=== PATIENT | female | born 1950 | race Caucasian/White ===

== ENCOUNTER → 2016-10-31 | Outpatient (CLI) | payer BC ==
[~2016-10-31] MED LIST: BUPR300T34 PO; CELE-19 PO; FAMO20TA PO; HYDR12.55 PO; LOSA50TA20 PO; OMEP40CA2 PO; VITA100037 PO; ZOSTINJ SC
--- NOTE | 2016-10-31 17:21 | REPMRS ---
Patient History The patient states she had a clinical breast exam in 10/2016. Family history of ovarian cancer in mother under age 50, breast cancer in maternal aunt under age 50, and breast cancer in maternal cousin at age 50 or over. Took estrogen for 20 years. Digital Woman Screen Mammo: October 31, 2016 - Exam #: [id number] Bilateral CC and MLO view(s) were taken. Technologist: Lizzeth Bailey, Technologist Prior study comparison: October 31, 2015, digital woman screen mammo performed at [facility]. October 25, 2014, digital woman screen mammo performed at [facility]. October 21, 2012, digital woman screen mammo performed at [facility]. FINDINGS: There are scattered fibroglandular densities. There is a moderate amount of residual fibroglandular tissue which is fairly symmetric. There is no interval development of dominant mass, architectural distortion, or clustered microcalcification typical of malignancy. There has been no change in the appearance of the mammogram from the prior studies. ASSESSMENT: BI-RADS/ACR category 1 mammogram. Negative. Recommendation Routine screening mammogram of both breasts in 1 year (for women over age 40). This mammogram was interpreted with the aid of an FDA-approved computer-aided dectection system. Electronically Signed By: Ventura Marcos MD 10/31/16 [id number]
== END ==
LOC: M WHC 10:26
PROVIDERS: ATTEND Nurse Practitioner Women's Health
DX: Z12.31 Encounter for screening mammogram for malignant neoplasm of breast (principal)

== ENCOUNTER → 2016-12-08 | Outpatient (CLI) | payer BC, OTHER ==
[~2016-12-08] MED LIST changes: +GASTROGRAFIN SOLUTION 30ML (Q9963) As Ordered ONE; +ISOVUE-370 76% 100ML VIAL (Q9967) As Ordered ONE
--- NOTE | 2016-12-08 16:35 | REP ---
Clinical: Groin pain. Technique: Axial contrast enhanced images from the lung bases to the pubic symphysis using oral and 100 ml Isovue 370 intravenous contrast material with precontrast and delayed images of the abdomen as well as coronal and sagittal re-formations. Findings: Lung bases demonstrate bullae in the right lower lobe along with scarring and suggestions for prior pulmonary surgery in the periphery of the right base. No prior examinations available for comparison. A large hiatal hernia is identified. Liver demonstrates three hypodense lesions with subtle peripheral enhancement on delayed imaging likely representing hemangiomas measuring up to 1.6 cm maximal diameter. Spleen, pancreas, collapsed gallbladder and bilateral adrenal glands are normal. Kidneys demonstrate bilateral cystic changes measuring up to 4.3 cm maximal diameter along the periphery of the left kidney. The enteric system is without obstruction or acute inflammatory process. Scattered colonic diverticula noted without acute diverticulitis. Normal terminal ileum and appendix identified in the right lower quadrant. Pelvis demonstrates normal bladder and evidence for prior hysterectomy. Small fat containing inguinal hernias noted. No ascites. No adenopathy. No free air. Atherosclerotic changes of the aorta and vasculature noted without aneurysm or dissection. Musculoskeletal structures demonstrate degenerative changes without definite focal osseous abnormality. Impression: 1. Small fat containing bilateral inguinal hernias possibly related to patient's symptoms of groin pain. 2. Three hypodense lesions within the liver measuring up to 1.6 cm maximal diameter compatible with benign hemangiomas. 3. Bilateral renal cysts (left greater than right) measuring up to 4.3 cm maximal diameter. 4. Scattered colonic diverticula without acute diverticulitis. 5. Further chronic changes as described above. Signed by Jerod Lucas MD 12/08/2016 04:27 P
== END ==
LOC: M RAD 14:29
PROVIDERS: ATTEND Surgery
DX: R10.2 Pelvic and perineal pain (principal); K40.31 Unilateral inguinal hernia, with obstruction, without gangrene, recurrent; N28.1 Cyst of kidney, acquired; K76.9 Liver disease, unspecified
CPT/HCPCS: 74178; Q9963; Q9967

== ENCOUNTER → 2017-01-01 | Outpatient (CLI) | payer MEDICARE, BC, OTHER ==
[~2017-01-01] MED LIST changes: +BUPR150T3 PO; -CELE-19 PO; +CELE1CAP4 PO; -GASTROGRAFIN SOLUTION 30ML (Q9963) As Ordered ONE; +HAIR1TAB2 PO; -ISOVUE-370 76% 100ML VIAL (Q9967) As Ordered ONE; +OMEG10002 PO; +VITA-122 PO; -VITA100037 PO; +VITA100067 PO; +VITA1DRO PO
[2017-01-01 20:29] LABS: MEAN CORPUSCULAR HEMOGLOBIN 31.5 pg (27.0-33.0); MEAN CORPUSCULAR HGB CONC 34.4 g/dl (32.0-36.5); MEAN CORPUSCULAR VOLUME 91.5 fl (80.0-96.0); RED CELL DISTRIBUTION WIDTH 12.1 % (11.5-14.5); WHITE BLOOD COUNT 5.6 K/mm3 (4.0-10.0)
[2017-01-01 20:47] LABS: ALBUMIN 4.1 GM/DL (3.2-5.2); ALBUMIN/GLOBULIN RATIO 1.32 (1.00-1.93); ALKALINE PHOSPHATASE 74 U/L (45-117); ALT/SGPT 47 U/L (12-78); ANION GAP 8 MEQ/L (8-16); AST/SGOT 21 U/L (15-37); BILIRUBIN,TOTAL 0.5 MG/DL (0.2-1.0); BLOOD UREA NITROGEN 12 MG/DL (7-18); CALCIUM LEVEL 9.4 MG/DL (8.8-10.2); CARBON DIOXIDE LEVEL 30 MEQ/L (21-32); CHLORIDE LEVEL 100 MEQ/L (98-107); CHOLESTEROL LEVEL 350 MG/DL (<200); CREATININE FOR GFR 0.87 MG/DL (0.55-1.02); GLOMERULAR FILTRATION RATE > 60.0 (>45); GLUCOSE, FASTING 87 MG/DL (80-110); POTASSIUM SERUM 4.2 MEQ/L (3.5-5.1); SODIUM LEVEL 138 MEQ/L (136-145); TOTAL PROTEIN 7.2 GM/DL (6.4-8.2); TRIGLYCERIDES LEVEL 147 MG/DL (<150)
== END ==
LOC: M ADAMS 13:27
PROVIDERS: ATTEND Family Medicine
DX: I10 Essential (primary) hypertension (principal); E78.2 Mixed hyperlipidemia

== ENCOUNTER → 2017-01-06 | Day surgery (SDC) | payer MEDICARE, BC, OTHER ==
[~2017-01-06] VITALS: Ht 160 cm; Wt 65.8 kg
[~2017-01-06] MED LIST changes: +BUPIVACAINE/EPIN 0.25% 30 ML VIAL As Ordered ONE; +DESFLURANE 240 ML INHALANT As Ordered ONE; +GLYCOPYRROLATE INJ 0.2 MG/ML 2 ML VIAL As Ordered ONE; +KETOROLAC 30 MG/ML VIAL (J1885) IV SCH; +LIDOCAINE 2% INJ 100 MG/5 ML SDV (FOR ANES.) As Ordered ONE; +LR 1,000 ML IV ONE; +LR 1,000 ML IV SCH; +METOCLOPRAMIDE INJ 10MG/2ML VIAL (J2765) As Ordered ONE; +MIDAZOLAM INJ 2 MG/2 ML VIAL (J2250) As Ordered ONE; +MORPHINE 2 MG/ML 1ML SYRINGE IV PRN; +NEOSTIGMINE 1MG/ML 5 ML SYRINGE (J2710) As Ordered ONE; +NORCO, ANEXSIA 5/325MG TABLET (HYDROcodone/ACETAMINOPHEN) PO PRN; +ONDANSETRON 4MG/2ML VIAL (J2405) As Ordered ONE; +ONDANSETRON 4MG/2ML VIAL (J2405) IV PRN; +PROPOFOL 200 MG/20 ML VIAL As Ordered ONE; +ROCURONIUM BROMIDE 50 MG/5 ML VIAL/SYRINGE As Ordered ONE; +ceFAZolin SOD 1 GM in D5W MINI-BAG PLUS 50 ML IV ONE; +ePHEDrine SULFATE 25 MG/5 ML(5MG/ML) SYRINGE As Ordered ONE; +fentaNYL 100 MCG/2 ML INJECTION (J3010) IV PRN; +fentaNYL 250 MCG/5 ML INJECTION (J3010) As Ordered ONE
[2017-01-06 15:55] VITALS: BP 142/74
--- NOTE | 2017-01-18 06:40 | RO ---
DATE OF PROCEDURE: 01/06/2017 PREOPERATIVE DIAGNOSIS: Bilateral inguinal hernias. POSTOPERATIVE DIAGNOSIS: Bilateral inguinal hernias. PROCEDURE: Laparoscopic bilateral inguinal hernia repair. SURGEON: Dr. Mervin Petersen FACE CLEANER: ANESTHESIA: General endotracheal anesthesia ESTIMATED BLOOD LOSS: Minimal. FLUIDS: Crystalloid. BRIEF PROCEDURE SUMMARY: The patient was brought to the operating room and was given general anesthesia and after adequate anesthesia and preoperative antibiotics were given the patient was prepped and draped in the usual sterile fashion. Next, a periumbilical incision was made with skin knife. Blunt dissection was carried down to fascia. Fascia was incised longitudinally with electrocautery and then the rectus muscle was retracted anteriorly and laterally. Finger dissection posteriorly of rectus muscle was performed inferior to the umbilicus and then a balloon dissector was placed in the preperitoneal space and balloon dilated under direct visualization. Stationary balloon was placed in the infraumbilical site and insufflated to 15 mm pressure. Two 5 mm trocars were placed along the midline and then under direct visualization the loose areolar tissue covering the posterior aspect of the pubis as well as Jacob's ligament bilaterally was taken down with hook cautery. This was performed on the right-hand side all the way to the level of the vessels and the valley between the vessels and the bladder was created using some minimal blunt dissection. This was then continued lateral to the entrance of the round ligament into the canal and back up following the peritoneum up to the round ligament where the peritoneum was tightly adherent to this. There was a lipoma of the cord which was dissected off surrounding tissue, transected at its base and left in the preperitoneal space. The peritoneum was eventually mobilized off the round ligament, but it was tightly adherent to this and thus I got into the peritoneum where the round ligament dove deep into the pelvis. Once this was mobilized adequately, the left inguinal area was dissected out much in the same manner, taking down the loose areolar tissue on the posterior aspect of the Jacob's ligament and then creating a valley between the bladder and the vessels using some blunt dissection lateral to the canal/internal ring area. This was opened bluntly with hook cautery down to the level of the internal ring area, which was where the peritoneum was mobilized off the round ligament and the lipoma of the cord was also mobilized out of this area and transected at its base. Both sides were covered with 3DMax mesh medium size and tacked into place with Absorbatack, both on the pubis laterally, on Jacob's and then laterally on the tail of the mesh. Good coverage was appreciated throughout and the preperitoneal space was desufflated under direct visualization. #0 Vicryl was used close the fascia at the umbilicus and all incisions were closed with #4-0 Vicryl. Steri-Strips and a dry sterile dressing was applied. The patient was awakened, extubated, and brought to the recovery room awake, alert, and hemodynamically stable. Sponge and needle counts were correct times two.
== END | disposition home or self-care (01) ==
LOC: M SDC 09:22
PROVIDERS: ATTEND Surgery
DX: K40.20 Bilateral inguinal hernia, without obstruction or gangrene, not specified as recurrent (principal); I10 Essential (primary) hypertension; K44.9 Diaphragmatic hernia without obstruction or gangrene; K21.9 Gastro-esophageal reflux disease without esophagitis; J44.9 Chronic obstructive pulmonary disease, unspecified; F32.9 Major depressive disorder, single episode, unspecified; Z79.899 Other long term (current) drug therapy
CPT/HCPCS: 49650; C1781; J0690; J1885; J2250; J2405; J2710; J2765; J3010

== ENCOUNTER 2018-12-21 10:25 | Day surgery (SDC) | payer MEDICARE, BC, OTHER ==
[~2018-12-21] VITALS: Ht 160 cm; Wt 61.1 kg
[~2018-12-21 10:25] MED LIST changes: -BUPIVACAINE/EPIN 0.25% 30 ML VIAL As Ordered ONE; -DESFLURANE 240 ML INHALANT As Ordered ONE; -GLYCOPYRROLATE INJ 0.2 MG/ML 2 ML VIAL As Ordered ONE; -KETOROLAC 30 MG/ML VIAL (J1885) IV SCH; -LOSA50TA20 PO; +LOSA50TA88 PO; -LR 1,000 ML IV SCH; -METOCLOPRAMIDE INJ 10MG/2ML VIAL (J2765) As Ordered ONE; -MORPHINE 2 MG/ML 1ML SYRINGE IV PRN; -NEOSTIGMINE 1MG/ML 5 ML SYRINGE (J2710) As Ordered ONE; -NORCO, ANEXSIA 5/325MG TABLET (HYDROcodone/ACETAMINOPHEN) PO PRN; -ONDANSETRON 4MG/2ML VIAL (J2405) IV PRN; -ROCURONIUM BROMIDE 50 MG/5 ML VIAL/SYRINGE As Ordered ONE; +VITA100018 PO; -ceFAZolin SOD 1 GM in D5W MINI-BAG PLUS 50 ML IV ONE; +dexameTHASONE 4 MG/ML 1ML VIAL (J1100) As Ordered ONE; -ePHEDrine SULFATE 25 MG/5 ML(5MG/ML) SYRINGE As Ordered ONE; -fentaNYL 100 MCG/2 ML INJECTION (J3010) IV PRN
[2018-12-21] MEDS ORDERED: BUPIVACAINE/EPIN 0.25% 30 ML VIAL As Ordered ONE ×2 (11:48→11:53)
[2018-12-21] MEDS ORDERED: ESTROGENS VAGINAL CREAM 30GM As Ordered ONE (11:48)
[2018-12-21] MEDS ORDERED: METHYLENE BLUE 0.5% (5MG/ML) 10 ML AMP (PROVAYBLUE)(Q9968 PER 1MG) As Ordered ONE (11:49)
[2018-12-21] MEDS ORDERED: BACITRACIN PWD 50,000 UNITS VIAL As Ordered ONE (11:49)
[2018-12-21] MEDS ORDERED: METOCLOPRAMIDE INJ 10MG/2ML VIAL (J2765) As Ordered ONE (13:07)
[2018-12-21] MEDS ORDERED: ePHEDrine SULFATE 25 MG/5 ML(5MG/ML) SYRINGE As Ordered ONE (13:23)
[2018-12-21] MEDS ORDERED: ACETAMINOPHEN 1000MG 100ML IV BTL (OFIRMEV) (J0131 PER 10MG) As Ordered ONE (13:32)
[2018-12-21] MEDS ORDERED: KETOROLAC 60 MG/2 ML VIAL (J1885) As Ordered ONE (13:45)
[2018-12-21] MEDS ORDERED: zolPIDEM TARTRATE 5 MG TAB PO PRN (14:45)
[2018-12-21] MEDS ORDERED: ONDANSETRON 4MG/2ML VIAL (J2405) IV PRN ×2 (14:45→15:15)
[2018-12-21] MEDS: LR 1,000 ML IV SCH ×2 (14:47→15:27)
[2018-12-21] MEDS ORDERED: fentaNYL 100 MCG/2 ML INJECTION (J3010) IV PRN (15:15)
[2018-12-21] MEDS ORDERED: PERCOCET 5MG/325MG TAB PO PRN (15:15)
[2018-12-21] MEDS ORDERED: HYDROMORPHONE HCL 0.5 MG/ 0.5 ML SYRINGE (J1170 PER 1) IV PRN (15:15)
[2018-12-21 16:00] VITALS: BP 142/77
[2018-12-21 16:30] VITALS: BP 141/72
--- NOTE | 2018-12-21 16:41 | RO ---
DATE OF PROCEDURE: 12/21/2018 PREOPERATIVE DIAGNOSIS: Complete symptomatic pelvic prolapse. POSTOPERATIVE DIAGNOSIS: Complete symptomatic pelvic prolapse. PROCEDURE: Cystocele repair with the use of cadaveric fascia jayy, rectocele repair with the use of cadaveric fascia jayy, vaginal vault suspension and cystoscopy. SURGEON: Dr. Emilia Galeana. ANESTHESIA: General. MEDICATIONS: Ancef 2 grams preoperatively. DRAINS: 18-Icelandic Sierra catheter. HISTORY OF PRESENT ILLNESS: The patient is a 68-year-old female with complete symptomatic pelvic prolapse. On physical examination she had a grade 3 cystocele and a grade 2 rectocele without any complaints of incontinence. Urodynamic studies were done November 15, 2018 and this showed complete bladder emptying with some hyper sensation and urgency with 217 mL in the bladder. There was no leakage seen with stress maneuvers with the bladder reduced. After discussing all different options, alternatives, risks, and benefits it was decided to bring the patient to the operating room for surgical repair. We discussed that we augment the repair using cadaveric fascia jayy to help prevent recurrence. PROCEDURE: The patient was brought into the operating room. Sequential compression devices were in place and preoperative antibiotics were given. General anesthesia was induced. She was then placed in the lithotomy position and she was prepped and draped in the usual fashion. An 18-Icelandic Sierra catheter was placed and left to gravity drainage. The [place] retractor was then utilized. 0.25 percent Marcaine with epinephrine was injected into the anterior vaginal wall and vaginal mucosa was sharply dissected off of underlying pericervical fascia. Next the pericervical fascia was completely reduced and then brought back together in the midline using a 2-0 chromic suture as a primary repair and using the needle passer a nonabsorbable suture was placed at the level the sacrospinous ligaments and then a Jacob's ligament. A piece of 4 x 7 fascia jayy had been soaked in antibiotic irrigation and trimmed to size. The sutures were then passed through the graft using an 18 gauge needle and the augment for the graft was done. Vaginal mucosa was then closed using a running locking 2-0 chromic suture. Cystoscopy was performed and there was excellent efflux of urine from both ureteral orifices. There was no evidence of sutures in the bladder were in the vaginal region. The Sierra catheter was replaced. At this point attention was paid towards the rectocele, 0.25% Marcaine with epinephrine was injected into the posterior vaginal wall. Next a midline incision was made and vaginal mucosa was sharply dissected free from perivesical fascia. The perivesical fascia was also then reapproximated using 2-0 chromic sutures to the side estrada and the perineal body. The perineal body was closed using 2-0 chromic sutures. Next using needle passer two sutures were placed through the sacrospinous ligaments and then lateral to the perineal bodies. A piece of cadaveric fascia jayy 6 x 8 had been soaked in antibiotic irrigation and the needles were then passed through this graft and this graft was also trimmed to size. The vaginal vault and rectocele were completely suspended. Copious antibiotic irrigation was utilized and vaginal mucosa was closed in a running locking 2-0 chromic suture. A rectal exam had been done and there was no evidence of rectal injury. Vaginal packing was then placed using Premarin vaginal cream and the Sierra catheter was left to gravity drainage. The patient tolerated the procedure well and was returned to the recovery room in stable condition. IVONNE
[2018-12-21 17:00] VITALS: BP 156/90
[2018-12-21 18:00] VITALS: BP 164/82
[2018-12-21] MEDS: PERCOCET 5MG/325MG TAB PO PRN ×2 (18:18→22:39)
[2018-12-21 19:00] VITALS: BP 132/69
[2018-12-21 20:00] VITALS: BP 129/68
[2018-12-21] MEDS: OMEPRAZOLE 20 MG CAP PO SCH (21:09)
[2018-12-22] VITALS: BP 117/67
[2018-12-22 04:00] VITALS: BP 136/78
[2018-12-22 07:10] LABS: HEMATOCRIT 33.5 % (36.0-47.0); HEMOGLOBIN 11.4 g/dl (12.0-15.5); MEAN CORPUSCULAR HEMOGLOBIN 31.5 pg (27.0-33.0); MEAN CORPUSCULAR VOLUME 92.5 fl (80.0-96.0); PLATELET COUNT, AUTOMATED 242 10^3/uL (150-450); RED BLOOD COUNT 3.62 10^6/uL (4.00-5.40); WHITE BLOOD COUNT 12.9 10^3/uL (4.0-10.0)
[2018-12-22 07:28] LABS: BLOOD UREA NITROGEN 11 MG/DL (7-18); CALCIUM LEVEL 8.9 MG/DL (8.8-10.2); CARBON DIOXIDE LEVEL 27 MEQ/L (21-32); CHLORIDE LEVEL 96 MEQ/L (98-107); CREATININE FOR GFR 0.69 MG/DL (0.55-1.30); GLOMERULAR FILTRATION RATE > 60.0 (>45); GLUCOSE, FASTING 108 MG/DL (70-100); POTASSIUM SERUM 3.9 MEQ/L (3.5-5.1); SODIUM LEVEL 130 MEQ/L (136-145)
[2018-12-22] MEDS ORDERED: TRAM37.53 PO (07:40)
[2018-12-22 08:00] VITALS: BP 141/89
[2018-12-22] MEDS: PERCOCET 5MG/325MG TAB PO PRN (08:38)
[2018-12-22] MEDS: OMEPRAZOLE 20 MG CAP PO SCH (08:39)
[2018-12-22] MEDS ORDERED: BISACODYL 5 MG TAB PO SCH (09:00)
[2018-12-22] MEDS ORDERED: CelecoXIB (CeleBREX) 100 MG CAP PO SCH (09:00)
[2018-12-22] MEDS ORDERED: VITAMIN D 1,000 INTERNATIONAL UNITS TABLET PO SCH (09:00)
[2018-12-22] MEDS ORDERED: hydroCHLOROthiazide 25 MG TAB PO SCH (09:00)
== END 2018-12-22 11:30 | disposition home or self-care (01) ==
LOC: M SDC 10:25 → M PED 15:40 → M SDC 12-22 11:30
PROVIDERS: ATTEND Specialist
DX: N81.10 Cystocele, unspecified (principal); N81.6 Rectocele; N99.3 Prolapse of vaginal vault after hysterectomy; I10 Essential (primary) hypertension; E78.5 Hyperlipidemia, unspecified; E03.9 Hypothyroidism, unspecified; K44.9 Diaphragmatic hernia without obstruction or gangrene; K40.20 Bilateral inguinal hernia, without obstruction or gangrene, not specified as recurrent; K21.9 Gastro-esophageal reflux disease without esophagitis; K22.70 Barrett's esophagus without dysplasia; F32.9 Major depressive disorder, single episode, unspecified; K57.30 Diverticulosis of large intestine without perforation or abscess without bleeding; M12.9 Arthropathy, unspecified; J44.9 Chronic obstructive pulmonary disease, unspecified; R06.83 Snoring; R06.02 Shortness of breath; M54.9 Dorsalgia, unspecified; K64.8 Other hemorrhoids; Z88.8 Allergy status to other drugs, medicaments and biological substances; Z79.899 Other long term (current) drug therapy; Z87.891 Personal history of nicotine dependence; Z90.710 Acquired absence of both cervix and uterus
CPT/HCPCS: 36415; 57260; 57283; 80048; 85027; 96365; 96367; 96375; 96376; C1762; J0131; J0690; J1100; J1885; J2250; J2405; J2765; J3010; Q9968

== ENCOUNTER → 2020-09-11 | Outpatient (CLI) | payer MEDICARE, BC, OTHER ==
[~2020-09-11] MED LIST changes: -BUPR150T3 PO; +BUPR150T4 PO; -BUPR300T34 PO; +BUPR300T92 PO; -LIDOCAINE 2% INJ 100 MG/5 ML SDV (FOR ANES.) As Ordered ONE; -LR 1,000 ML IV ONE; -MIDAZOLAM INJ 2 MG/2 ML VIAL (J2250) As Ordered ONE; -OMEP40CA2 PO; +OMEP40CA97 PO; -ONDANSETRON 4MG/2ML VIAL (J2405) As Ordered ONE; -PROPOFOL 200 MG/20 ML VIAL As Ordered ONE; +TRAM37.53 PO; -dexameTHASONE 4 MG/ML 1ML VIAL (J1100) As Ordered ONE; -fentaNYL 250 MCG/5 ML INJECTION (J3010) As Ordered ONE
== END ==
LOC: M LABSMTC 09:42
PROVIDERS: ATTEND Pediatrics
DX: Z20.822 Contact with and (suspected) exposure to COVID-19 (principal)
CPT/HCPCS: C9803; U0003

== ENCOUNTER → 2021-02-08 | Outpatient (CLI) | payer MEDICARE, BC, OTHER ==
[~2021-02-08] MED LIST changes: +BUPR150T12 PO; -BUPR150T4 PO; +CHOL1CAP PO; +HYDR-3490 PO; +MV-M1TAB13 PO; +NIAC100T9 PO; +NIAC500C PO; +OMEP40CA4 PO; -OMEP40CA97 PO; +ZINC1TAB2 PO
== END ==
LOC: M LABSMTC 09:57
PROVIDERS: ATTEND Anesthesiology
DX: Z01.812 Encounter for preprocedural laboratory examination (principal); Z20.822 Contact with and (suspected) exposure to COVID-19

== ENCOUNTER 2021-02-13 10:59 | Day surgery (SDC) | payer MEDICARE, BC, OTHER ==
[~2021-02-13] VITALS: Ht 160 cm; Wt 66.2 kg
[~2021-02-13 10:59] MED LIST changes: +NS 1,000 ML IV ONE
[2021-02-13] MEDS ORDERED: fentaNYL 100 MCG/2 ML INJECTION (J3010) As Ordered ONE (12:09)
[2021-02-13] MEDS ORDERED: LIDOCAINE 2% 100MG/5ML SDV (FOR ANES.) As Ordered ONE (12:09)
[2021-02-13] MEDS ORDERED: propofoL 200 MG/20 ML VIAL As Ordered ONE (12:09)
--- NOTE | 2021-02-13 12:26 | ROOR ---
Patient Name: Emilia Clarke Procedure Date: 02/13/2021 12:12 PM Date of : 1950 Age: 71 Room: [facility] Gender: Female Note Status: Finalized Procedure: Upper Endoscopy + Biopsies Indications: Heartburn, Richter's esophagus, Follow-up of Richter's esophagus Providers: Alejo Box MD Referring MD: Samir Barber DO Requesting Provider: Medicines: Monitored Anesthesia Care Complications: No immediate complications. Procedure: Pre-Anesthesia Assessment: - The heart rate, respiratory rate, oxygen saturations, blood pressure, adequacy of pulmonary ventilation, and response to care were monitored throughout the procedure. The Endoscope was introduced through the mouth, and advanced to the second part of duodenum. The upper GI endoscopy was accomplished without difficulty. The patient tolerated the procedure well. Findings: The Z-line was irregular and was found 35 cm from the incisors. Multiple biopsies were obtained with cold forceps for evaluation to rule out Richter's Esophagus randomly at the gastroesophageal junction. A small hiatal hernia was present. No other significant abnormalities were identified in a careful examination of the stomach. The exam of the duodenum was otherwise normal. Impression: - Z-line irregular, 35 cm from the incisors. - Small hiatal hernia. - Multiple biopsies were obtained at the gastroesophageal junction. - The examination was otherwise normal. Recommendation: - Patient has a contact number available for emergencies. The signs and symptoms of potential delayed complications were discussed with the patient. Return to normal activities tomorrow. Written discharge instructions were provided to the patient. - High fiber diet. - Discharge patient to home. - Follow an antireflux regimen. - Continue present medications. - Await pathology results. - Telephone GI clinic for pathology results in 1 week. - Return to referring physician. - Repeat upper endoscopy for surveillance based on pathology results. - The findings and recommendations were discussed with the patient's family. Procedure Code(s): --- Professional --- 10459, Esophagogastroduodenoscopy, flexible, transoral; with biopsy, single or multiple Diagnosis Code(s): --- Professional --- K22.8, Other specified diseases of esophagus K44.9, Diaphragmatic hernia without obstruction or gangrene K22.70, Richter's esophagus without dysplasia R12, Heartburn CPT copyright 2019 [employer]. All rights reserved. The codes documented in this report are preliminary and upon structural steel equipment erector review may be revised to meet current compliance requirements. Alejo Box MD Alejo Box MD 02/13/2021 12:26:11 PM Electronically signed by Alejo Box MD Number of Addenda: 0 Note Initiated On: 02/13/2021 12:12 PM Estimated Blood Loss: Estimated blood loss: none.
[2021-02-13 12:40] VITALS: BP 150/83
== END 2021-02-13 12:53 | disposition home or self-care (01) ==
LOC: M OPP 10:59
PROVIDERS: ATTEND Internal Medicine Gastroenterology
DX: K22.8 Other specified diseases of esophagus (principal); K22.70 Barrett's esophagus without dysplasia; K44.9 Diaphragmatic hernia without obstruction or gangrene; R12 Heartburn; J44.9 Chronic obstructive pulmonary disease, unspecified; Z79.899 Other long term (current) drug therapy; Z88.8 Allergy status to other drugs, medicaments and biological substances; Z87.891 Personal history of nicotine dependence
CPT/HCPCS: 43239; 88305; J3010

== ENCOUNTER → 2021-04-17 | Outpatient (REF) | payer MEDICARE, BC, OTHER ==
[~2021-04-17] MED LIST changes: -NIAC500C PO; +NIAC500C11 PO; -NS 1,000 ML IV ONE
[2021-04-17 12:48] LABS: BASO % 0.7 % (0.0-1.0); EOS # 0.1 10^3/uL (0.0-0.5); HEMATOCRIT 40.8 % (36.0-47.0); HEMOGLOBIN 13.8 g/dl (12.0-15.5); LYMPH # 1.3 10^3/uL (1.5-5.0); LYMPH % 21.5 % (24.0-44.0); MEAN CORPUSCULAR HEMOGLOBIN 31.8 pg (27.0-33.0); MEAN CORPUSCULAR HGB CONC 33.8 g/dl (32.0-36.5); MONO # 0.9 10^3/uL (0.0-0.8); MONO % 15.7 % (2.0-8.0); NEUTROPHILS # 3.5 10^3/uL (1.5-8.5); NEUTROPHILS % 59.8 % (36.0-66.0); PLATELET COUNT, AUTOMATED 317 10^3/uL (150-450); RED BLOOD COUNT 4.34 10^6/uL (4.00-5.40); WHITE BLOOD COUNT 5.9 10^3/uL (4.0-10.0)
[2021-04-17 14:37] LABS: ALBUMIN 3.9 GM/DL (3.2-5.2); ALT/SGPT 35 U/L (12-78); BILIRUBIN,TOTAL 0.4 MG/DL (0.2-1.0); BLOOD UREA NITROGEN 14 MG/DL (7-18); CALCIUM LEVEL 9.7 MG/DL (8.8-10.2); CARBON DIOXIDE LEVEL 28 MEQ/L (21-32); CHLORIDE LEVEL 104 MEQ/L (98-107); CHOLESTEROL LEVEL 286 MG/DL (<200); CHOLESTEROL RISK RATIO 3.042 (<5); CREATININE FOR GFR 0.86 MG/DL (0.55-1.30); GLOMERULAR FILTRATION RATE > 60.0 (>45); GLUCOSE, FASTING 77 MG/DL (70-100); HDL CHOLESTEROL 94 MG/DL (>40); LDL CHOLESTEROL 163 MG/DL (<100); NON-HDL-C 192 MG/DL; POTASSIUM SERUM 4.6 MEQ/L (3.5-5.1); SODIUM LEVEL 139 MEQ/L (136-145); TOTAL PROTEIN 7.3 GM/DL (6.4-8.2); TRIGLYCERIDES LEVEL 147 MG/DL (<150)
[2021-04-17 14:42] LABS: MALB URINE SIEMENS 41.7 MG/L; MAU/CREAT RATIO 25.9 MCG/MG (0.0-30.0)
== END ==
LOC: M LABDRWAD 12:27
PROVIDERS: ATTEND Family Medicine
DX: E78.2 Mixed hyperlipidemia (principal); I10 Essential (primary) hypertension; E03.9 Hypothyroidism, unspecified

== ENCOUNTER → 2021-05-01 | Outpatient (CLI) | payer MEDICARE, BC, OTHER ==
[~2021-05-01] MED LIST changes: +GASTROGRAFIN SOLUTION 30ML (Q9963) ONE
--- NOTE | 2021-05-01 11:01 | REP ---
INDICATION: LLQ ABD PAIN. COMPARISON: 12/08/2016 the only prior TECHNIQUE: Standard helical technique without intravenous contrast administration. This causes exam limitations. Oral bowel preparatory contrast was administered prior to the exam. FINDINGS: There are chronic lung base changes status quo. There is a large hiatal hernia status quo. The 3 hypodense liver lesions seen on the prior exam and shown to be benign hemangiomas are again identified. The gallbladder is unremarkable. Limited evaluation of the pancreas and adrenal glands show no significant changes from the prior exam. The spleen is within normal limits. Once again, there are numerous low-density lesions seen throughout each kidney all of which have increased in size with the largest arising from the left kidney measuring 8 cm today previously 3.7 cm. These are all poorly evaluated since no intravenous contrast administration followed this noncontrast study. There is no significant change in appearance of the abdominal aorta or para-aortic regions. There is calcific atheromatous change status quo. Limited evaluation of the bowel loops and the mesenteries show no gross abnormalities. There is sigmoid colon diverticulosis status quo. There is no evidence of free fluid or free air. Bone window technique throughout the exam shows spinal degenerative changes which appear stable. IMPRESSION: There is no evidence of acute disease on this limited exam. Chronic changes and exam limitations as described above. <Electronically signed by Rebel Ram > 05/01/21 [id number]
== END ==
LOC: M PLAIMG 08:57
PROVIDERS: ATTEND Nurse Practitioner
DX: R10.32 Left lower quadrant pain (principal)
CPT/HCPCS: 74176; Q9963

== ENCOUNTER → 2021-05-16 | Outpatient (CLI) | payer MEDICARE, BC, OTHER ==
[~2021-05-16] MED LIST changes: -GASTROGRAFIN SOLUTION 30ML (Q9963) ONE
--- NOTE | 2021-05-16 18:12 | REP ---
INDICATION: NEOPLASM OF UNCERTAIN BEHAVIOR OF UNSPECIFIED KIDN. COMPARISON: CT 12/08/2016 and 05/01/2021. TECHNIQUE: Real-time sonographic evaluation of the kidneys is performed. FINDINGS: Renal cortical echogenicity pattern is normal bilaterally and contours are smooth. There is no hydronephrosis bilaterally. In the mid right kidney a simple appearing cyst measures 2.5 x 2.6 x 1.6 cm. Just inferior to that there is a hypoechoic cystic appearing structure 2.5 x 1.8 x 2.5 cm. In the lower pole of the right kidney the cystic appearing structure measures 2.4 x 1.8 x 2.1 cm. A large cystic lesion of the lower pole the left kidney measures 8.1 x 6.6 x 7.2 cm. Within this cyst is a lobulated nodular structure which measures 2.4 x 2.8 x 4.2 cm. A 1.9 cm hemangioma is incidentally noted in the right lobe of the liver. The right kidney measures 11.4 x 6.3 x 5.1 cm. Left renal dimensions are 10.1 x 4.7 x 5.4 cm. The urinary bladder is grossly unremarkable. It is not well distended. With Doppler evaluation ureteral jets could not be visualized. IMPRESSION: No hydronephrosis. Multiple right renal cysts. There is a large cyst of the lower pole the left kidney with an internal lobulated mural nodule. 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 <Electronically signed by Miles Ya > 05/16/21 [id number]
== END ==
LOC: M RAD 15:56
PROVIDERS: ATTEND Family Medicine
DX: D41.00 Neoplasm of uncertain behavior of unspecified kidney (principal); N28.1 Cyst of kidney, acquired

== ENCOUNTER → 2021-05-20 | Outpatient (CLI) | payer MEDICARE, BC, OTHER ==
[2021-05-20 12:46] LABS: APPEARANCE, URINE CLEAR (CLEAR); BACTERIA, URINE AUTO NEGATIVE (NEGATIVE); BILIRUBIN, URINE AUTO NEGATIVE (NEGATIVE); BLOOD, URINE BLOOD NEGATIVE (NEGATIVE); COLOR, URINE YELLOW (YELLOW); GLUCOSE, URINE (UA) AUTO NEGATIVE (NEGATIVE); KETONE, URINE AUTO NEGATIVE (NEGATIVE); LEUKOCYTE ESTERASE, URINE AUTO NEGATIVE (NEGATIVE); NITRITE, URINE AUTO NEGATIVE (NEGATIVE); PROTEIN, URINE AUTO NEGATIVE (NEGATIVE); RBC, URINE AUTO 0 /HPF (0-3); SPECIFIC GRAVITY URINE AUTO 1.008 (1.002-1.035); SQUAMOUS EPITHELIAL CELL UR AU 0 /HPF (0-6); UROBILINOGEN, URINE AUTO 0.2 mg/dL (0.0-2.0); WBC, URINE AUTO 0 /HPF (0-3)
== END ==
LOC: M LABDRWAD 10:21
PROVIDERS: ATTEND Family Medicine
DX: N39.0 Urinary tract infection, site not specified (principal)

== ENCOUNTER → 2021-05-27 | Outpatient (REF) | payer MEDICARE, BC, OTHER | LOC: M LAB REF 12:23 | PROVIDERS: ATTEND Family Medicine | DX: D41.00 Neoplasm of uncertain behavior of unspecified kidney (principal) ==

== ENCOUNTER → 2021-05-29 | Outpatient (REF) | payer MEDICARE, OTHER ==
[2021-05-29 13:53] LABS: BLOOD UREA NITROGEN 10 MG/DL (7-18); CALCIUM LEVEL 9.8 MG/DL (8.8-10.2); CARBON DIOXIDE LEVEL 30 MEQ/L (21-32); CHLORIDE LEVEL 99 MEQ/L (98-107); CREATININE FOR GFR 0.74 MG/DL (0.55-1.30); GLOMERULAR FILTRATION RATE > 60.0 (>45); GLUCOSE, FASTING 90 MG/DL (70-100); POTASSIUM SERUM 3.7 MEQ/L (3.5-5.1); SODIUM LEVEL 135 MEQ/L (136-145)
== END ==
LOC: M SFHCADAM 09:33
PROVIDERS: ATTEND Nurse Practitioner Women's Health
DX: N28.1 Cyst of kidney, acquired (principal)

== ENCOUNTER → 2021-05-31 | Outpatient (CLI) | payer MEDICARE, BC, OTHER ==
[~2021-05-31] MED LIST changes: +ISOVUE-370 76% 100ML VIAL As Ordered ONE
--- NOTE | 2021-05-31 12:04 | REP ---
INDICATION: RENAL CYST. COMPARISON: CT without contrast 05/01/2021, CT with 12/08/2016 TECHNIQUE: Bolus 100 mL Isovue 370 with arteriovenous and 5 minute delayed images of the abdomen obtained. Pre contrast images were also performed. Coronal and sagittal reconstructions. FINDINGS: The lung bases are unchanged. Heart is unchanged there is a large hiatal hernia again seen. Low-density pre contrast liver nodules with nodular enhancement on arterial and venous phase and filling in on delayed phase confirming hemangiomas of the liver stable. No other [place]ock findings. Gallbladder intact pancreas unremarkable. Adrenal glands normal. Moderate stool throughout the visualized portions of colon. Small bowel loops are fluid-filled. The aorta is calcifications without aneurysm. No periaortic or other retroperitoneal pathologic sized lymphadenopathy. There are bilateral numerous cortical cysts in the kidneys have increased in number and size since 2017 some parapelvic cysts are noted on the right some of the cysts are exophytic and 1 in the posterior aspect of the right upper pole is slightly hyper dense but with smooth margins. None of the cysts on the right side are suspicious. On the left there also multiple cysts with a few small parapelvic cysts most of these are small and cortical the largest however is predominantly exophytic off the lower pole measuring 8 by 7.2 by 8 cm. In its superior aspect there is a enhancing solid nodule peripherally measuring 2.5 x 1.5 x 1.1 cm. Advanced degenerative changes with vacuum phenomenon and marked narrowing at mid and lower thoracic levels into the upper lumbar spine unchanged no acute compression deformity or destructive lesion. Visualized ribs intact IMPRESSION: 1. Left lower pole with a Bosniak class 4 cyst 8 x 8 x 7.2 cm it has an enhancing mural nodule 2.5 x 1.5 x 1.1 cm. 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 Appropriate action should be taken. This simple cyst on the 2017 exam head no mural nodule or suspicious characteristics and was much smaller. 2. Both kidneys show increase in number and size of some of the cysts. No other suspicious cysts or characteristics. Ultrasound could be considered. <Electronically signed by Samir Nelson > 05/31/21 1200
== END ==
LOC: M RAD 10:30
PROVIDERS: ATTEND Nurse Practitioner Women's Health
DX: N28.89 Other specified disorders of kidney and ureter (principal); N28.1 Cyst of kidney, acquired
CPT/HCPCS: 74170; Q9967

== ENCOUNTER → 2021-06-17 | Outpatient (REF) | payer MEDICARE, OTHER ==
[~2021-06-17] MED LIST changes: +D31000CA4 PO; +ESTR1CRE VG; -ISOVUE-370 76% 100ML VIAL As Ordered ONE; +PROBCAP14 PO
[2021-06-17 13:18] LABS: APPEARANCE, URINE CLEAR (CLEAR); BACTERIA, URINE AUTO NEGATIVE (NEGATIVE); BILIRUBIN, URINE AUTO NEGATIVE (NEGATIVE); BLOOD, URINE BLOOD NEGATIVE (NEGATIVE); COLOR, URINE YELLOW (YELLOW); GLUCOSE, URINE (UA) AUTO NEGATIVE (NEGATIVE); KETONE, URINE AUTO NEGATIVE (NEGATIVE); LEUKOCYTE ESTERASE, URINE AUTO NEGATIVE (NEGATIVE); NITRITE, URINE AUTO NEGATIVE (NEGATIVE); PROTEIN, URINE AUTO NEGATIVE (NEGATIVE); RBC, URINE AUTO 0 /HPF (0-3); SQUAMOUS EPITHELIAL CELL UR AU 0 /HPF (0-6); UROBILINOGEN, URINE AUTO 0.2 mg/dL (0.0-2.0); WBC, URINE AUTO 0 /HPF (0-3)
[2021-06-17 13:22] LABS: HEMOGLOBIN 12.8 g/dl (12.0-15.5); MEAN CORPUSCULAR HEMOGLOBIN 30.7 pg (27.0-33.0); MEAN CORPUSCULAR HGB CONC 32.8 g/dl (32.0-36.5); MEAN CORPUSCULAR VOLUME 93.5 fl (80.0-96.0); PLATELET COUNT, AUTOMATED 288 10^3/uL (150-450); RED BLOOD COUNT 4.17 10^6/uL (4.00-5.40); WHITE BLOOD COUNT 6.4 10^3/uL (4.0-10.0)
[2021-06-17 13:33] LABS: INR 0.86; PROTHROMBIN TIME 12.1 SECONDS (12.7-14.5)
[2021-06-17 13:34] LABS: PARTIAL THROMBOPLASTIN TIME 27.4 SECONDS (25.9-37.0)
[2021-06-17 13:47] LABS: ALBUMIN 3.8 GM/DL (3.2-5.2); ALT/SGPT 36 U/L (12-78); BILIRUBIN,TOTAL 0.6 MG/DL (0.2-1.0); BLOOD UREA NITROGEN 12 MG/DL (7-18); CALCIUM LEVEL 9.4 MG/DL (8.8-10.2); CARBON DIOXIDE LEVEL 30 MEQ/L (21-32); CHLORIDE LEVEL 102 MEQ/L (98-107); CREATININE FOR GFR 0.79 MG/DL (0.55-1.30); GLOMERULAR FILTRATION RATE > 60.0 (>45); GLUCOSE, FASTING 84 MG/DL (70-100); SODIUM LEVEL 138 MEQ/L (136-145); TOTAL PROTEIN 7.1 GM/DL (6.4-8.2)
== END ==
LOC: M SFHCADAM 09:16
PROVIDERS: ATTEND Urology
DX: Z01.818 Encounter for other preprocedural examination (principal); D49.519 Neoplasm of unspecified behavior of unspecified kidney

== ENCOUNTER → 2021-06-22 | Outpatient (CLI) | payer MEDICARE, BC, OTHER | LOC: M LABSMTC 10:31 | PROVIDERS: ATTEND Anesthesiology | DX: Z01.812 Encounter for preprocedural laboratory examination (principal); Z20.822 Contact with and (suspected) exposure to COVID-19 ==

== ENCOUNTER 2021-06-26 06:15 | Inpatient (IN) | payer MEDICARE, BC, OTHER ==
[~2021-06-26] VITALS: Ht 160 cm; Wt 64.8 kg
[~2021-06-26 06:15] MED LIST changes: +LR 1,000 ML IV ONE; +ceFAZolin SOD 2 GM in IV 1 EA IV ONE
--- OUTSIDE RECORDS SUMMARY | 2021-06-26 06:21 | CCD | Clinical Summary ---
Author Author [facility] Organization [facility] Address [address] [place] [address] Phone Care Team Providers Care Assistant Project Engineer Name Role Phone Samir Barber DO PP [phone] Samir Barber DO Unavailable [phone] Magnetic, Imaging Unavailable [phone] Yulia Sterling Unavailable [phone] [facility] Radiology, Imaging Unavailable [phone] [facility], Radiology Unavailable [phone] Isauro DOS SANTOS, Alejo Unavailable [phone] Reason for Referral Date Encounter Description Provider Reason for Referral 05/17/21 Samir Barber DO Request Consultation By Specialist Reason for Visit and Chief Complaint visit for:, visit for: Telephonic Encounter for Acute Care. Telephonic visit is being utilized due to the COVID19 pandemic - The Chief Complaint is: Patient is scheduled to discuss ultrasound results via Telehelth due to COVID-19 pandemic. Patient screened for 5 minutes. -CFleming LABORER CHEMICAL PROCESSING Problems Includes: Problems addressed during this encounter and other active Problems Current Visit Onset Date - Time Resolved Date - Time Provider C ondition Status Renal Neoplasm Uncertain Behavior 05/09/2021 - 4:47PM Samir Barber DO Active History of Vaginal Hysterectomy 07/27/1983 - 12:00AM Fara Barber DO Active Note: Benign pathology Past Visits Onset Date - Time Resolved Date - Time Provider Co ndition Status Hiatal Hernia 02/14/2021 - 4:55PM Tova Last RN Act isaac Note: gi scope 02/13/21 Richter's Esophagus 12/20/2015 - 12:00AM Samir nance DO Active Note: Per pathology report d ated 12/11/15 Lung Neoplasm 11/16/2014 - 12:00AM Samir Barebr DO Active Note: CT chest 05/22/2014. [address] recommended Internal Hemorrhoids 09/16/2013 - 12:00AM Samir chaney DO Active Note: see colonoscopy dated 09/14/13- repeat in 5-10 years Hyperlipidemia 03/25/2011 - 12:00AM Samir kendrick DO Active Hypothyroidism Subclinical 03/25/2011 - 12:00AM Kiran Barber DO Active Chronic Obstructive Pulmonary Disease 01/17/2011 - 12:00AM Samir Barber DO Active Note: 35 pack year history q uit in 2005- screen till 2020 Depression 01/17/2011 - 12:00AM Samir Barber DO Active Bulging Intervertebral Disc Lumbar 01/17/2011 - 12:00AM Samir Barber DO Active Note: Averages one Celebrex /week.-MRI on file. Diverticulosis of Colon (without Hemorrhage) 01/17/2011 - 12:00A M Samir Barber DO Active Note: reported on scope - We instein 2001 Fiber discussed-due in 2011 for repeat scope Isauro Gerd 01/17/2011 - 12:00AM Samir Barber DO Active Note: EGD May 2002 on r ecord History of Tobacco Use 01/17/2011 - 12:00AM Samir Barber DO Active Note: Patient smoked 1 PPD x 35 years, tobacco free since 2005 Hypertension (Systemic) 01/17/2011 - 12:00AM Samir Barber DO Active Note: Unchanged History of Lung Surgery 07/27/1988 - 12:00AM Samir Barber DO Active Note: BLEB -history of spont aneous pneumothorax, status post thoracotomy 1988 Plan of Treatment Pending Tests Order Diagnosis Results Due Ordering Provi rolf Lab US RENAL COMPLETE 11/05/21 Samir Barber DO Referrals To Diagnosis Urology Neoplasm of uncertai n behavior of unspecified kidney Note: ds as listed- Kervin Future Appointments Date Time Location Provider Acute Telehealth FaceTime 05/23/2021 4:00PM [facility] Samir Barber DO [facility] 06/25/2021 2:00PM [facility] Samir chaney DO Future Tests Order Diagnosis Results Due Ordering Provid er Visit Summary - *Standard Visit wLab Visit Summary with Labs Essential (primary) hypertension 04/29/21 Samir Barber DO - Instructions for patient - Return to the clinic if condition wors ens or new symptoms arise - Follow-up visit Assessments Includes: Assessments from this encounter - Clostridium difficile diarrhea - Abdominal pain--LLQ - Diarrhea - Renal neoplasm of uncertain behavior See updated problem list for history/discussion/assessment and plan for today's problems. See also health tab and appropriate flow sheets. See updated problem list for history/discussion/assessment and plan for today's problems. See also health tab and appropriate flow sheets. Instructions Includes: Instructions from this encounter Instructions to patient Instructions for patient Education and Decision Aids were provide d during visit for: Patient appeared to understand therapeut ic regimen Medical Equipment - Implanted Devices Includes: Current DevicesNo Medical Equipment Recorded Medications Includes: Medications discussed during this encounter and other current Medicati ons Current Medications (continue as prescribed) metroNIDAZOLE 500 MG Oral Tablet 05/09/2021 Provide r: Samir Barber DO Diagnosis: Enterocolitis d/t Cl ostridium difficile, not spcf as recur three times a day CeleBREX 200 MG Oral Capsule 04/29/2021 Provider: Samir Barber DO Diagnosis: Unsp thoracic, thora colum and lumbosacr intvrt disc disorder twice a day-PRN with food Omeprazole 40 MG Oral Capsule Delayed Release 04/29/2021 Provider: Samir Barber DO Diagnosis: Gastro-esophageal re flux disease without esophagitis 1 daily up to BID PRN Losartan Potassium 50 MG Oral Tablet 04/29/2021 Pro vider: Samir Barber DO Diagnosis: Essential (primary) hypertension once a day hydroCHLOROthiazide 25 MG Oral Tablet 04/29/2021 Pr ovider: Samir Barber DO Diagnosis: Essential (primary) hypertension TAKE ONE TABLET BY MOUTH EVERY DAY Multi-Vitamin Oral Tablet 05/07/2020 Provider: Diagnosis: once a day -women over 50 EQL Fluticasone Propionate 50MCG/ACT Nasal Suspension 2016 Provider: Samir Barber DO Diagnosis: Acute sinusitis, uns pecified once a day 2 sprays /nostril / day Medications Administered Includes: Administered Medications from this encounterNo Administered Medications Recorded Vital Signs Includes: Vital Signs from this encounterNo Vital Signs Recorded For Specified Dates Results Includes: Results discussed during this encounter UR[facility]ALYSIS [facility] Ordered by Sonja Vázquez NP on 12/14/[address] [place], [address] Collected: 12/14/2018 Reported: 12/14/2018 18:51 tel : APPEARANCE,UR CLEAR (CLEAR) None Note: Responsible Observer: UR APPEAR UR APPEARANCE 200.0250 (A) BILIRUBIN,UR NEGATIVE (NEGATIVE) None Note: Responsible Observer: UR BILI UR B ILIRUBIN 200.0750 (A) COLOR,UR STRAW (YELLOW) None Note: Responsible Observer: UR COLOR UR COLOR 200.0200 (A) GLUCOSE, UR NEGATIVE MG/DL (NEGATIVE) None Note: Responsible Observer: UR GLU UR GL UCOSE 200.0500 (A) KETONES,UR NEGATIVE MG/DL (NEGATIVE) None Note: Responsible Observer: UR KETO UR K ETONES 200.0600 (A) LEUKOCYTE ESTERASE ,UR NEGATIVE (NEGATIVE) None Note: Responsible Observer: UR DENISE RADHA ASE UR LEUKOCYTE ESTERASE 200.0725 (A) NITRATE,UR NEGATIVE (NEGATIVE) None Note: Responsible Observer: UR NIT UR NI TRATE 200.0700 (A) OCCULT BLOOD,UR NEGATIVE (NEGATIVE) None Note: Responsible Observer: UR OCLT BLD UR OCCULT BLOOD 200.0650 (A) PH,UR 6.0 (5.0-8.0) None Note: Responsible Observer: UR PH UR PH 200.0350 (A) PROTEIN,UR NEGATIVE MG/DL (NEGATIVE) None Note: Responsible Observer: UR PROT UR P ROTEIN 200.0450 (A) SPECIFIC GRAVITY,UR 1.004 (1.002-1.035) N (Normal) Note: Responsible Observer: SG URINE SPE CIFIC GRAVITY,UR 200.0410 (A) UROBILINOGEN,UR 0.2-1.0 EU_MG/DL (NEG-0-1.0) None Note: Responsible Observer: UR URO UR UR OBILINOGEN 200.0900 (A) Reviewed on 12/16/2018; All test result s are final unless otherwise noted. History of Present Illness Includes: History of Present Illness from this encounter Emilia Clarke is a 71 year old female. - Allergy list reviewed - Problem list reviewed - Medication reconciliation performed - Medication list reviewed with patient and updated in EMR - - No request for consultation by special ist no previous emergency room visit Social History Description Last Updated Smoking status 05/17/2021 : Former smoker 05/17/2021 Alcohol use (female) less than 4 drinks per occasion / 7 per week 04/25/2021 Drug use Denies Drug Use 04/25/2021 Educational level 04/25/2021 No secondhand cigarette smoke exposure 04/25/2021 Procedures and Surgical History Includes: Procedures from this encounter Procedures Code Diagnosis Performing Provider Service Location Service Date continue current medication except where otherwise no echo Transition in care medication list update medical regimen review Clinical summary provided to patient Clinical summary provided to patient Summary provided electronically in CCDA format & reasonable certainty of receipt Surgical History Last Updated History of vaginal hysterectomy 1984 04/25/2021 Medical History Includes: Medical History addressed during this encounter Description Last Updated thoracotomy 1988- Blebs after pneumothrax 04/25/2021 Bilateral repair of inguinal hernia 04/25/2021 Family History Includes: Family History addressed during this encounter Description Last Updated Family history of cancer Mother -ovarian cancer 04/25 Family history of heart disease Mother- in her 70's C HF 04/25/2021 Family history of hypertension Mother 04/25/2021 Family history of not using drugs 04/25/2021 Maternal history of not using drugs 04/25/2021 No family history of depression 04/25/2021 No maternal history of depression 04/25/2021 No paternal history of depression 04/25/2021 Paternal history of not using drugs 04/25/2021 Review of Systems Includes: Review of Systems from this encounterNo Review of Systems Recorded Mental Status Includes: Mental Status from this encounterNo Mental Status Recorded Functional Status Includes: Functional Status from this encounterNo Functional Status Recorded Physical Exam Includes: Physical Exam from this encounter Skin: -the skin color and pigmentation were normal -the skin general appearance was normal Ears, Nose, Throat: -no external nose deformities -no nasal discharge seen Head: -no evidence of a head injury -the head was normocephalic General Status: -in no acute distress -well developed Musculoskeletal System: -overall findings were normal unless noted otherwise Vital Signs: -current vital signs reviewed Physical Findings Free Text: - neurologic exam grossly intact Immunizations Includes: Immunizations addressed during this encounterNo Immunizations Recorded Allergies Includes: Active Allergies Substance Type Reaction Onset Date - Time Resolved Date - Ti me Status Prinivil Intolerance coiugh 10/30/2011 - 12:00AM Act isaac Encounters Encounter Provider Location Date Check-In Time Check-Out Time D iagnosis Telephonic Encounter Samir Barber [facility] 1 4:20PM 4:16PM Clostridium Difficile Diarrhea, Abdomina l Pain--llq, Diarrhea, Renal Neoplasm Uncertain Behavior Insurance Includes: Active Insurance Policies Plan Name Member ID Group # Subscriber Relationship Effective Da nir 1 - [employer] [id number] Emilia Mkceon Vince Self 07/2016 - Unknown 2 - [facility] 3,3000 [id number] JENNIFERJOEAshley Clarke, Du J 06/05 - Unknown Advance Directives Includes: Current Advance Directives Directive Pat Aware Third Libertarian Effective Date Reviewed Status RHIO Yes 05/11/2012 Current and Ve rified Note: 05/10/12 packet given Pt Bill of Rights, Priv Prac, Ad Dir Yes 11/26/2018 Current and Verified Note: Pt declined AD packet Ebola Screening Performed Yes 12/14/2018 Current and Verified Note: Within the last month, have you traveled outside of the [place]? - NO Health Concerns Includes: Health Concerns for current assessmentsNo Active Health Concerns Recorded Goals Includes: Active Goals for current assessmentsNo Active Goals Recorded Interventions Includes: Interventions for current assessmentsNo Interventions Recorded Evaluations & Outcomes Includes: Evaluations & Outcomes for current assessmentsNo Outcomes Recorded
--- OUTSIDE RECORDS SUMMARY | 2021-06-26 06:21 | CCD ---
Author Author [facility] Organization [facility] Address Unknown Phone Unavailable Care Team Providers Care Sharepoint Solutions Architect Name Role Phone Nona Crowley Unavailable PROBLEMS Type Condition ICD9-CM Code [id number] Code Onset Dates Condition S tatus W/U Status Risk SNOMED Code Notes Problem Hypertension 401.9 Active confirmed 4553470 3 Problem Reflux esophagitis 530.11 Active confirmed 2 04389720 Problem Hormone replacement therapy (postmenopausal) V07.4 Active confirmed 703623026 Problem Hyperlipidemia 272.4 Active confirmed 90435 004 Problem Postmenopausal status (age-related) (natural) V49.81 Active confirmed 83758804 Problem Hyperlipidemia, unspecified E78.5 Active confirmed 47833670 Problem Cystocele and rectocele with incomplete uterovaginal prola pse N81.2 Active confirmed 993161563 Problem Hypothyroidism 244.9 Active confirmed 25260 008 Problem Vaginal atrophy N95.2 Active confirmed 2971 58148 Problem Depressive disorder, not elsewhere classified 311 Active confirmed 04076683 Problem Essential (primary) hypertension I10 Active conf irmed 87123702 Problem Adnexal tenderness, right R10.2 Active confirmed 530389715 Problem Hx of hysterectomy Z90.710 Active confirmed 794934625 Problem Symptom associated with female genital organs N94. 9 Active confirmed 495660738 ALLERGIES Allergen (clinical drug ingredient) Drug/Non Drug Allergy do cumented on EMR Reaction Allergy Type Onset Date Status lisinopril Lisinopril([facility] Code:[address]-14) coughing Drug Allergy 01/04/2019 Active ENCOUNTERS from 1950 to 2021-05-30 Encounter Location Date Provider Diagnosis [facility] [address] [phone] [place] [phone] May, Nona Keo IMMUNIZATIONS No Information SOCIAL HISTORY Tobacco Use: Social History Observation Description Date Details (start date - stop date) Former Smoker Sex Assigned At : Social History Observation Description Sex Assigned At Unknown Language: Question Answer Notes Languages spoken: [place]orese Yazidi: Question Answer Notes Yazidi No voodoo beliefs that would impact health care. Sexual Hx: Question Answer Notes Had sex in the last 12 months (vaginal, oral, or anal)? No LMP: hyster Have you ever had an STD? No Alcohol Screening: Question Answer Notes Did you have a drink containing alcohol in the past year? Ye s Points 1 Interpretation Negative How often did you have a drink containing alcohol in t he past year? Monthly or less (1 point) Tobacco Use: Question Answer Notes Are you a: former smoker How long has it been since you last smoked? > 10 years REASON FOR REFERRAL No Information VITAL SIGNS No information MEDICATIONS Medication SIG (Take, Route, Frequency, Duration) Notes Start Da te End Date Status Potassium Active Omeprazole 40 MG 1 capsule Orally bid Active Multivitamins OTC 1 tablet Orally daily Not-Taking Estrace 0.1 MG/GM as directed Vaginal 2-3 nights weekly for 30 d ay(s) Oct, Active Vitamin D3 1000 UNIT 1 tablet Orally Once a day Active CeleBREX 200 MG 1 capsule Orally Once a day as needed for 30 day(s) Not-Taking Wellbutrin XL 300 MG 1 tablet every morning Orally Once a day Not-Taking Losartan Potassium 50 MG 1 tablet Orally Once a day for 30 day(s) Not-Taking Hydrochlorothiazide 25 25 mg 1 tab(s) oral once a day Active Calcium 600 + D 600-400 MG-UNIT 1 tablet Orally 2 x daily for 30 day( s) Not-Taking Pepcid 20 MG 1 tablet at bedtime Orally Once a day Not-Taking Bactrim DS 800-160 MG 1 tablet Orally One tablet day of cystosco py for 1 days Oct, Not-Taking Celecoxib 200 MG TAKE ONE CAPSULE BY MOUTH TW ICE A DAY NEEDED WITH FOOD Oral for 30 Active Flax Seed Oil 1000 MG OTC Orally three times a day Not-Taking Magnesium Active PROCEDURES No Information RESULTS No Results REASON FOR VISIT BMP MEDICAL (GENERAL) HISTORY Type Description Date Medical History hx back injury Medical History gerd Medical History depression Medical History hypertension Medical History bingham's esophagus Surgical History hysterectomy, unilateral oophorectomy (? side) 1984 Surgical History lung surgery (blebs) Surgical History colonoscopy - about 2003 2013 Surgical History EGD fall 2015 Surgical History hernia repair bilateral groin 01/06/17 Surgical History CYSTOSCOPY 12/01/2018 Surgical History facial cystocele repair, fac ial rectocele repair, vaginal vault suspension 12/21/2018 Goals Section No Information Health Concerns No Information MEDICAL EQUIPMENT No Information MENTAL STATUS No Information FUNCTIONAL STATUS No Information ASSESSMENTS No Information PLAN OF TREATMENT Next Appt Details Provider Name:Nona Dominguez Keo, 2021-05-0 9 09:00:00 AM, [address], , [place], [address], Insurance Providers Payer Name Payer Address Payer Phone Insured Name Patient Relati onship to Insured Coverage Start Date Coverage End Date MEDICARE Part A and B [address] [facility] [id number] [phone] MIGUEL GUEVARA [facility] [address] [facility] [id number] Du Guevara
--- OUTSIDE RECORDS SUMMARY | 2021-06-26 06:21 | CCD | Clinical Summary ---
Author Author Line[employer] Organization [facility] Address [address] [place] [address] Phone Care Team Providers Care Cyber Software Engineer Name Role Phone Samir Barber DO Unavailable [phone] Samir Barber DO PP [phone] Magnetic, Imaging Unavailable [phone] Yulia Sterling Unavailable [phone] [facility] Radiology, Imaging Unavailable [phone] [facility], Radiology Unavailable [phone] Isauro DOS SANTOS, Alejo Unavailable [phone] Reason for Referral No Reason for Referral Recorded Reason for Visit and Chief Complaint visit for: Telehealth Encounter for Acute Care. Telehealth is being utilized du e to the COVID19 pandemic, visit for: [facility] telehealth on lab results 71-yea r-old female Emilia. April 25, 2021 visit reviewed she was having nausea v omiting and diarrhea diarrhea started on and off 6 weeks ago up to 10 times a da y black appearance of stool at times. Recent labs reviewed was not reporting di arrhea at the time of her office visit C. difficile positive stool test positive for blood. ~ ~Labs from April 17, 2021 showed GFR greater than 60 electroly nir normal CBC white count 5.9 ~ ~Recent upper endoscopy reviewed February 13, 2021. ~ ~On April 25 she was given Augmentin for possible diverticulitis diagnosi s. Also Celebrex refilled. ~ ~She still has some slight crampy pain in the morn ings not much by way of diarrhea occasionally loose stool no black or bloody sto ols she is using a fiber supplement that is helping. ~ ~No mention of nausea or vomiting no cardiovascular respiratory complaints today ~ ~Assessment and plan a s documented and ordered below follow-up as scheduled call with questions proble ms changes or concerns. ~ ~Time spent on case discussion case review and doclilliann queenie 21 minutes - The Chief Complaint is: Patient is scheduled today for tele health via [employer] to discuss recent stool culture and labs, CKelleyLPN Problems Includes: Problems addressed during this encounter and other active Problems Current Visit Onset Date - Time Resolved Date - Time Provider C ondition Status History of Vaginal Hysterectomy 07/27/1983 - 12:00AM [...] 12/11/15 Lung Neoplasm 11/16/2014 - 12:00AM Samir Barber DO Active Note: CT chest 05/22/2014. 4 [...] Active Note: EGD May 2002 on r jarvis History of Tobacco Use 01/17/2011 - 12:00AM Samir Barber DO Active Note: Patient smoked 1 PPD x 35 years, tobacco free since 2005 Hypertension (Systemic) 01/17/2011 - 12:00AM Samir Barber DO Active Note: Unchanged History of Lung Surgery 07/27/1988 - 12:00AM Samir Barber DO Active Note: BLEB -history of spont aneous pneumothorax, status post thoracotomy 1988 Plan of Treatment Future Appointments Date Time Location Provider Acute Follow-up Telehealth 05/02/2021 4:10PM [facility] Samir Barber DO [facility] 06/25/2021 2:00PM [facility] Samir chaney DO Future Tests Order Diagnosis Results Due Ordering Provid er [id number] - *Revisit Acute [facility] Enterocolitis d/t Clostridium difficile, not spcf as recur 04/29/21 Samir Barber DO Visit Summary - *Standard Visit wLab Visit Summary with Labs Essential (primary) hypertension 04/29/21 Samir Barber DO - Instructions for patient - Return to the clinic if condition wors ens or new symptoms arise - Follow-up visit Assessments Includes: Assessments from this encounter - Clostridium difficile diarrhea - Abdominal pain--LLQ - Diarrhea See updated problem list for history/discussion/assessment and [...] this encounter and other current Medicati ons Discontinued / Stopped on this date Yoana Agarwal WATERSHED MANAGER on 04/25/2021 Amoxicillin-Pot Clavulanate 875-125 MG Oral Tablet Provider: Roger Agarwal NP Diagnosis: Dvtrcli of lg int w/ o perforation or abscess w/o bleeding New / Renewed during this visit Samir Barber DO on 04/29/2021 CeleBREX 200 MG Oral Capsule Provider: Samir Barber DO 90 day supply: 180 capsule, 3 refills Diagnosis: U nsp thoracic, thoracolum and lumbosacr intvrt disc disorder twice a day-PRN with food Pharmacy: [facility] #04 - [id number] , [facility], [id number] - Omeprazole 40 MG Oral Capsule Delayed Release Provider: Samir Barber DO 90 day supply: 180 capsule, 3 refills Diagnosis: G wilfred-esophageal reflux disease without esophagitis 1 daily up to BID PRN Pharmacy: [facility] #04 - [id number] , [facility], [id number] - Losartan Potassium 50 MG Oral Tablet Pro vider: Samir Barber DO 90 day supply: 90 tablet, 3 refills Diagnosis: Ess ential (primary) hypertension once a day Pharmacy: [facility] #06 - [id number] , [facility], [id number] - hydroCHLOROthiazide 25 MG Oral Tablet Pr ovider: Samir Barber DO 90 day supply: 90 tablet, 3 refills Diagnosis: Ess ential (primary) hypertension TAKE ONE TABLET BY MOUTH EVERY DAY Pharmacy: [facility] #04 - [id number] , [facility], [id number] - metroNIDAZOLE 500 MG Oral Tablet Provide r: Samir Barber DO 10 day supply: 30 tablet, 0 refills Diagnosis: Ent erocolitis d/t Clostridium difficile, not spcf as recur three times a day Pharmacy: [facility] #04 - [id number] , [facility], [id number] - Current Medications (continue as prescribed) Multi-Vitamin Oral Tablet 05/07/2020 Provider: Diagnosis: once [...] Results Includes: Results discussed during this encounter OCCULT BLOOD [facility] Ordered by Roger Agarwal NP on 04/25/[address] [place] [place], [address] Collected: 04/26/2021 Reported: 04/26/2021 17:37 tel :[phone] OCCULT BLOOD #1 POSITIVE (NEGATIVE) A (Abnormal) Note: Methodology is Fecal Immunochemic al(Immunoassay) Test for Occult Blood. Detects human hemoglobin at 5ug hHB/g feces.Responsible Observer: OCCULT BLOOD #1 OCCULT BLOOD #1 [id number] (A) Reviewed by Samir Barber DO on ; All test results are final unless otherwise noted. CLOSTRIDIUM DIFF AMPLIFICATION [facility] Ordered by Roger Agarwal NP on 04/25/[address] [place], [address] Collected: 04/26/2021 Reported: 04/27/2021 11:49 tel :[phone] CLOSTRIDIUM DIFF AMPLIFICATION POSITIVE (NEGATIVE) A (Abnormal) Note: Critical Results called to ME DUKE Wise by Kimberly Pierson at 1147 on 04/27/21 Interpretation: C. difficile DNA detected A positive test result does not necessarily indicate the presence of viable organisms. It is, however, indicative for the presence of toxigenic C. difficile DNA. The CDiff PCR assay is not intended to differentiate carriers of C. difficile from those with C. difficile infection. Results from the CDiff assay should be used as an adjunct to clinical observations and other information available to the physician. Testing is performed using POLYMERASE CHAIN REACTION(PCR) Repeat testing of patient is not necessary due to the increased sensitivity and specificity of the PCR assay.Responsible Observer: C DIFF PCR CLOSTRIDIUM DIFF BY PCR [id number] (A) Reviewed by Samir Barber DO on ; All test results are final unless otherwise noted. History of Present Illness Includes: History of Present Illness from this encounter Emilia Clarke is a 71 year old female. - Allergy list reviewed - Medication reconciliation performed - Medication list reviewed with patient and updated in EMR Social History Description Last Updated Smoking status 04/29/2021 : Former smoker 04/29/2021 Alcohol use (female) less than 4 drinks [...] during this encounter Description Last Updated thoracotomy 1989- Blebs after pneumothrax 04/25/2021 Bilateral repair of [...] Date Check-In Time Check-Out Time D iagnosis Acute Telehealth FaceTime Samir Barber [facility] 8:30AM 11:59PM Abdominal Pain--llq, Diarrhe a, Clostridium Difficile Diarrhea Insurance Includes: Active Insurance Policies Plan Name Member ID Group # Subscriber Relationship Effective Da nir 1 - [employer] [id number] Emilia Clarke Self 07/2016 - Unknown 2 - [facility] 3,3000 [id number] Du Vitale J 06/05 - Unknown Advance Directives Includes: [...]
--- OUTSIDE RECORDS SUMMARY | 2021-06-26 06:21 | CCD | Clinical Summary ---
Author Author [employer] [facility] Organization [facility] Address [address] [place] [address] Phone Care Team Providers Care Roper Operator Name Role Phone Samir Barber DO PP [phone] Samir Barber DO Unavailable [phone] Magnetic, Imaging Unavailable [phone] Yulia Sterling Unavailable [phone] [facility] Radiology, Imaging Unavailable [phone] [facility], Radiology Unavailable [phone] Isauro DOS SANTOS, Alejo Unavailable [phone] Reason for Referral Date Encounter Description Provider Reason for Referral 05/09/21 Samir Barber DO Request Consultation By Specialist Reason for Visit and Chief Complaint visit for: Recent diagnosis of C. difficile. CT scan abdomen pelvis ordered du to possible diverticular inflammation. No acute findings seen on exam chronic changes 3 hypodense lesions in the liver seen on prior exam benign hemangiomata. Gallbladder unremarkable numerous low-density lesions throughout each kidney all of which have increased in size they have gone from 3.7 to 8 cm no significa nt change in the appearance in the abdominal aortic periaortic regions. ~ ~She h as completed a 10-day course of antibiotic she is about 80% better she is gone f rom 5 hours of significant cramping every morning to about 2 or 3 hours she stil l has some urgency to get to the bathroom but her stool is now formed not liquid no black or bloody stools no nausea or vomiting ~ ~CAT scan reviewed discussed with patient and family present ~ ~Assessment and plan as ordered time spent on case review discussion with patient and documentation in total 21 minutes - The Chief Complaint is: Patient is scheduled today for telehealth appointment, to d iscuss recent CT, screened for 10 minutes. CKelleyLPN Problems Includes: Problems addressed during this [...] Treatment Future Appointments Date Time Location Provider [facility] 06/25/2021 2:00PM [facility] Samir chaney DO Future Tests Order Diagnosis Results Due Ordering Provid er Visit Summary - *Standard Visit wLab Visit Summary with Labs Essential (primary) hypertension 04/29/21 Samir Barber DO Gyrzib-tf-IvwoeHryu - *Revisit Acute Acute Follow-up [facility] Enterocolitis d/t Clostridium difficile, not spcf as recur 05/09/21 Samir Barber DO Lab US RENAL COMPLETE 11/05/21 Samir Barber DO - Instructions for patient [...] this encounter and other current Medicati ons New / Renewed during this visit Samir Barber DO on 05/09/2021 metroNIDAZOLE 500 MG Oral Tablet Provide r: Samir Barber DO 10 day supply: 30 tablet, 0 refills Diagnosis: Ent erocolitis d/t Clostridium difficile, not spcf as recur three times a day Pharmacy: [facility] #04 - [id number] , [facility], [address] - Current Medications (continue as prescribed) CeleBREX 200 MG Oral Capsule 04/29/2021 Provider: Samir Barber DO Diagnosis: Unsp thoracic, thora colum and lumbosacr intvrt disc disorder twice a day-PRN with food Omeprazole 40 MG Oral Capsule Delayed Release 04/29/2021 Provider: Samir Barber DO Diagnosis: Gastro-esophageal re flux disease without esophagitis 1 daily up to BID PRN Losartan Potassium 50 MG Oral Tablet 04/29/2021 Pro vider: Smair Barber DO Diagnosis: Essential (primary) hypertension once [...] Dates Results Includes: Results discussed during this encounterNo Results Recorded For Specified Dates History of Present Illness Includes: History of Present Illness from this encounter Emilia Clarke is a 71 year old female. - Allergy list reviewed - Medication reconciliation performed - Medication list reviewed with patient and updated in EMR - - No request for consultation by special ist no previous emergency room visit Social History Description Last Updated Smoking status 05/09/2021 : Former smoker 05/09/2021 Alcohol use (female) less than 4 drinks [...] Check-In Time Check-Out Time D iagnosis Acute Follow-up Telehealth Samir Barber [facility] 1 4:00PM 11:59PM Clostridium Difficile Diarrh ea, Abdominal Pain--llq, Diarrhea Insurance Includes: Active Insurance Policies Plan Name Member ID Group # Subscriber Relationship Effective Da nir 1 - [employer] [id number] Emilia Clarke Self 07/2016 - Unknown 2 - [facility] 3,3000 [id number] Du Vitale 06/05 - Unknown Advance Directives Includes: Current Advance Directives Directive Pat Aware Third Democrat Effective Date Reviewed Status RHIO Yes 05/11/2012 [...]
--- OUTSIDE RECORDS SUMMARY | 2021-06-26 06:21 | CCD | Clinical Summary ---
Author Author [employer] Organization [facility] Address [address] [place] [address] Phone Care Team Providers Care Borematic Operator Name Role Phone Samir Barber DO Unavailable [phone] Samir Barber DO PP [phone] Magnetic, Imaging Unavailable [phone] Yulia Sterling Unavailable [phone] [facility] Radiology, Imaging Unavailable [phone] [facility], Radiology Unavailable [phone] Isauro DOS SANTOS, Alejo Unavailable [phone] Reason for Referral Date Encounter Description Provider Reason for Referral 04/25/21 Roger Agarwal BIOCHEMICAL ENGINEER Request Consu ltation By Specialist Reason for Visit and Chief Complaint visit for: recheck chronic problems, med recheck, visit for: Telehealth Encoun ter for Chronic Care. Telehealth is being utilized due to the COVID19 pandemic - The Chief Complaint is: Patient ambulates to room 1 for an acute level 1 visit. -CFleming DRIER TENDER ~ ~ ~ ~Patient is scheduled today for telehealth via [facility] follow up. Patient states that she has diarrhea for about 5 weeks, now mills s abdominal pain, screened for 10 minutes. CKelleyLPN Problems Includes: Problems addressed during this encounter and other active Problems Current Visit Onset Date - Time Resolved Date - Time Provider Rudy ondition Status History of Vaginal Hysterectomy 07/27/1983 - 12:00AM Fara Barber DO Active Note: Benign pathology Past Visits Onset Date - Time Resolved Date - Time Provider Bridger ndition Status Hiatal Hernia 02/14/2021 - 4:55PM [...] Order Diagnosis Results Due Ordering Provi rolf Eurvxm-va-YcbvnRhhw - *Revisit Acute Acute Follow-up Telepho dorian Dvtrcli of lg int w/o perforation or abscess w/o bleeding 04/25/21 Roger farfanec BIOCHEMICAL ENGINEER Visit Summary - Standard Visit Visit Summary Standard Visi t Diarrhea, unspecified 04/25/21 Roger Agarwal BIOCHEMICAL ENGINEER Lab CLOSTRIDIUM DIFF AMPLIFICATION 10/22/21 Roger Agarwal BIOCHEMICAL ENGINEER Lab Immunoglobul G Subclasses 1-4 10/22/21 Roger Agarwal BIOCHEMICAL ENGINEER Lab OCCULT BLOOD 10/22/21 Roger Agarwal BIOCHEMICAL ENGINEER Lab OVA AND PARASITES 10/22/21 Roger Hurtado avec BIOCHEMICAL ENGINEER Lab STOOL CULTURE 10/22/21 Roger Agarwal BIOCHEMICAL ENGINEER Lab STOOL FOR WBC/LACTOFERRIN QUAL 10/22/21 Roger Agarwal BIOCHEMICAL ENGINEER Lab COVID 19 RHEONIX 10/22/21 Roger sellers BIOCHEMICAL ENGINEER Future Appointments Date Time Location Provider Acute Follow-up Telehealth 05/02/2021 4:10PM [facility] Barber DO [facility] 06/25/2021 2:00PM [facility] Samir chaney DO Future Tests Order Diagnosis Results Due Ordering Provid er Lab CT ABDOMEN WO CONTRAST 10/22/21 Roger Agarwal NP - Instructions for patient - Return to the clinic if condition wors ens or new symptoms arise - Follow-up visit Assessments Includes: Assessments from this encounter - Diverticulitis of colon - Abdominal pain--LLQ - Diarrhea See updated [...] ons Discontinued / Stopped on this date on 03/26/2021 CholestOff 450 MG Oral Tablet Provider: Diagnosis: New / Renewed during this visit Roger Agarwal NP on 04/25/2021 Amoxicillin-Pot Clavulanate 875-125 MG Oral Tablet Provider: Roger Agarwal NP 7 day supply: 14 tablet, 0 refills Diagnosis: Dvtr cli of lg int w/o perforation or abscess w/o bleeding twice daily for 7 days Pharmacy: [facility] #[id number] - [id number] [address] , [place], [address] - Current Medications (continue as prescribed) CeleBREX 200 MG Oral Capsule 05/07/2020 Provider: Samir Barber DO Diagnosis: Unsp thoracic, thora colum and lumbosacr intvrt disc disorder twice a day-PRN with food Omeprazole 40 MG Oral Capsule Delayed Release 05/07/2020 Provider: Samir Barber DO Diagnosis: Gastro-esophageal re flux disease without esophagitis 1 daily up to BID PRN Losartan Potassium 50 MG Oral Tablet 05/07/2020 Pro vider: Samir Barber DO Diagnosis: Essential (primary) hypertension once a day hydroCHLOROthiazide 25 MG Oral Tablet 05/07/2020 Pr ovider: Samir Barber DO Diagnosis: Essential [...] Vital Signs Includes: Vital Signs from this encounter Vital Name 04/25/2021 09:59A Blood Pressure Sitting L 126/68 BP Cuff Size Regular Pulse Rate-Sitting (bpm) 88 Pulse Rhythm Regular Respiration Rate (breaths/min) 18 Temp-Tympanic (F) 98.4 Oxygen Saturation (%) 96 Flow Rate (l/min) (None (Room Air)) FiO2 (%) 21 Results Includes: Results discussed during this encounterNo Results Recorded For Specified Dates History of Present Illness Includes: History of Present Illness from this encounter Emilia Clarke is a 71 year old female. - Allergy list reviewed - Medication reconciliation performed - Medication list reviewed with patient and updated in EMR - - No request for consultation by special ist - No previous emergency room visit Pt reports for chronic health follow up but states she has been acutely ill since yesterday with N/V and diarrhea. Brought in to the office for evaluation, vitals are stable. Pt is tender to palpation of the LLQ, hx of diverticulosis on colonoscopy. Pt states she has been having diarrhea for 6 weeks- up to 10 times per day, black appearance. She states she was on some sort of cholesterol lowering supplement OTC and she states she started this about 6 weeks ago but stopped done week ago when she thought it was coordinated to her diarrhea- diarrhea has actually worsened since stopping and not pt is vomiting as well. Labs form 04/17 reviewed, pts H&H were stable, gfr and LFTs were stable. ASCVD score still 8.2% despite LDL lowering on redraw- still advise beginning a cholesterol lowering agent once she is not longer acutely ill/having diarrhea. Plan as below with close follow up . Social History Description Last Updated Alcohol use (female) less than 4 drinks per occasion / 7 per week 04/25/2021 Drug use Denies Drug Use 04/25/2021 Educational level 04/25/2021 No secondhand cigarette smoke exposure 04/25/2021 Smoking status 03/26/2021 : Former smoker 04/25/2021 Smoking status 04/25/2021 : Former smoker 04/25/2021 Procedures and Surgical History Includes: Procedures [...] Mental Status Includes: Mental Status from this encounter Description Oriented to time, place, and person Functional Status Includes: Functional Status from this encounterNo Functional Status Recorded Physical Exam Includes: Physical Exam from this encounter Skin: -the skin color and pigmentation were normal -the skin general appearance was normal Eyes: -the conjunctiva exhibited no abnormalities -the extraocular movements were normal Ears, Nose, Throat: -no external nose deformities -no nasal discharge seen -the oropharynx was normal Neck: -the neck demonstrated no decrease in suppleness -the thyroid showed no abnormalities -no cervical mass was seen -No carotid bruits Lymph Nodes: -the supraclavicular lymph nodes were not enlarged -no adenopathy Lungs: -normal breath sounds/voice sounds -no wheezing was heard -no rhonchi were heard -no rales/crackles were heard Cardiovascular System: -no murmurs were heard -no pitting edema -heart rate and rhythm normal -no bradycardia present -no tachycardia present Abdomen: -abdominal non-tender Psychiatric Exam: -the affect was normal Head: -no evidence of a head injury -the head was normocephalic Neurological System: -oriented to time, place, and person General Status: -in no acute distress -well developed -well nourished Musculoskeletal System: -overall findings were normal Vital Signs: -current vital signs reviewed Immunizations Includes: Immunizations addressed during this encounterNo Immunizations Recorded Allergies Includes: Active Allergies Substance Type Reaction Onset Date - Time Resolved Date - Ti me Status Prinivil Intolerance coiugh 10/30/2011 - 12:00AM Act isaac Encounters Encounter Provider Location Date Check-In Time Check-Out Time D iagnosis Acute L1 Jackze N Any BIOCHEMICAL ENGINEER [facility] 04/25/2021 9:30AM 10:31 AM Diarrhea, Diverticulitis of Colon, Abdominal Pain--llq Insurance Includes: Active Insurance Policies Plan Name Member ID Group # Subscriber Relationship Effective Da nir 1 - s Medicare [id number] Emilia Plasenciaw Self 07/2016 - Unknown 2 - [facility] 3,3000 [id number] Du Vitale 06/05 - Unknown Advance Directives Includes: Current Advance Directives Directive Pat Aware Third Republican Effective Date Reviewed Status RHIO Yes 05/11/2012 [...]
--- OUTSIDE RECORDS SUMMARY | 2021-06-26 06:21 | CCD | Clinical Summary ---
Author Author AlgotochipQwickly Organization [facility] Address [address] [place] [address] Phone Care Team Providers Care Check Weigher Name Role Phone Samir Barber DO Unavailable [phone] Samir Barber DO PP [phone] Magnetic, Imaging Unavailable [phone] Yulia Sterling Unavailable [phone] [facility] Radiology, Imaging Unavailable [phone] [facility], Radiology Unavailable [phone] Isauro DOS SANTOS, Alejo Unavailable [phone] Reason for Referral Date Encounter Description Provider Reason for Referral 04/25/21 Roger Agarwal ATHLETIC DIRECTOR Request Consu ltation By Specialist Reason for Visit and Chief Complaint visit for: recheck chronic problems, med recheck, visit for: Telehealth Encoun ter for Chronic Care. Telehealth is being utilized due to the COVID19 pandemic - The Chief Complaint is: Patient ambulates to room 1 for an acute level 1 visit. -CFleming BUILDINGS AND GROUNDS DIRECTOR ~ ~ ~ ~Patient is scheduled today for telehealth via [facility] follow up. Patient states that [...] Order Diagnosis Results Due Ordering Provi rolf [id number] - *Revisit Acute Acute Follow-up Telepho dorian Dvtrcli of lg int w/o perforation or abscess w/o bleeding 04/25/21 Roger farfanec ATHLETIC DIRECTOR Visit Summary - Standard Visit Visit Summary Standard Visi t Diarrhea, unspecified 04/25/21 Roger Agarwal ATHLETIC DIRECTOR Lab CLOSTRIDIUM DIFF AMPLIFICATION 10/22/21 Roger Agarwal ATHLETIC DIRECTOR Lab Immunoglobul G Subclasses 1-4 10/22/21 Roger Agarwal ATHLETIC DIRECTOR Lab OCCULT BLOOD 10/22/21 Roger Agarwal ATHLETIC DIRECTOR Lab OVA AND PARASITES 10/22/21 Roger Hurtado avec ATHLETIC DIRECTOR Lab STOOL CULTURE 10/22/21 Roger Agarwal ATHLETIC DIRECTOR Lab STOOL FOR WBC/LACTOFERRIN QUAL 10/22/21 Roger Agarwal ATHLETIC DIRECTOR Lab COVID 19 RHEONIX 10/22/21 Roger sellers ATHLETIC DIRECTOR Future Appointments Date Time Location Provider Acute Follow-up Telehealth 05/02/2021 4:10PM [facility] Barber DO [facility] 06/25/2021 2:00PM [facility] Samir chaney DO Future Tests Order [...] bleeding twice daily for 7 days Pharmacy: [id number] - [id number] [address] , [place], [address] - Current Medications (continue as prescribed) CeleBREX [...] were stable, gfr and LFTs were stable. Plan as below with close follow up [...] Time Check-Out Time D iagnosis Acute L1 Roger Agarwal ATHLETIC DIRECTOR [facility] 04/25/2021 9:30AM 10:31 AM Diarrhea, Diverticulitis of Colon, Abdominal Pain--llq Insurance Includes: Active Insurance Policies Plan Name Member ID Group # Subscriber Relationship Effective Da nir 1 - s Medicare [id number] Emilia Clarke Self 07/2016 - Unknown 2 - [facility] 3,3000 [id number] WILLIAMS VinceDu J 06/05 - Unknown Advance Directives Includes: Current Advance Directives Directive Pat Aware Third Constitution Party Effective Date Reviewed Status RHIO Yes 05/11/2012 [...]
--- OUTSIDE RECORDS SUMMARY | 2021-06-26 06:21 | CCD | Clinical Summary ---
Author Author Diligent [employer] Member Services Organization [facility] Address [address] [place] [address] Phone Care Team Providers Care Wastewater Project Manager Name Role Phone Samir Barber DO PP [phone] Samir Barber DO Unavailable [phone] Magnetic, Imaging Unavailable [phone] Yulia Sterling Unavailable [phone] [facility] Radiology, Imaging Unavailable [phone] [facility], Radiology Unavailable [phone] Alejo Box MD Unavailable [phone] Reason for Referral No Reason for Referral Recorded Reason for Visit and Chief Complaint visit for:, visit for: Telehealth Encounter for Acute Care. Telehealth is being utilized due to the COVID19 pandemic - The Chief Complaint is: Patient is sche dule to follow up on Gi issue telehealth, visualized FT to covid 19 pandemic. Pa tient screen for 5min AruddCA Problems Includes: Problems addressed during this encounter [...] US RENAL COMPLETE 11/05/21 Samir Barber DO Future Appointments Date Time Location Provider [facility] 06/25/2021 2:00PM [facility] Samir chaney DO Future Tests Order Diagnosis Results Due Ordering Provid er Visit Summary - *Standard Visit wLab Visit Summary with Labs Essential (primary) hypertension 04/29/21 Samir Barber DO Records Urology 05/23/21 Samir britt DO - Instructions for patient - Return [...] ons Discontinued / Stopped on this date Patr dmaion Barber DO on 05/09/2021 metroNIDAZOLE 500 MG Oral Tablet Provide r: Samir Barber DO Diagnosis: Enterocolitis d/t Cl ostridium difficile, not spcf as recur Current Medications (continue as prescribed) CeleBREX 200 [...] Social History Description Last Updated Smoking status 05/23/2021 : Former smoker 05/23/2021 Alcohol use (female) less than 4 drinks [...] D iagnosis Acute Telehealth FaceTime Samir Barber [facility] 4:00PM 11:59PM Renal Neoplasm Uncertain Beh avior, Clostridium Difficile Diarrhea, Abdominal Pain--llq, Diarrhea Insurance Includes: Active Insurance Policies Plan Name Member ID Group # Subscriber Relationship Effective Da nir 1 - [employer] [id number] Emilia Linda Clarke Self 07/2016 - Unknown 2 - [facility] 3,3000 [id number] WILLIAMS VinceDu 06/05 - Unknown Advance Directives Includes: Current [...]
--- OUTSIDE RECORDS SUMMARY | 2021-06-26 06:21 | CCD | Clinical Summary ---
Author Author [facility] Organization [facility] Address [address] [place] [address] Phone Care Team Providers Care It Application Support Analyst Name Role Phone Samir Barber DO PP [phone] Samir Barber DO Unavailable [phone] Magnetic, Imaging Unavailable [phone] Yulia Sterling Unavailable [phone] [facility] Radiology, Imaging Unavailable [phone] [facility], Radiology Unavailable [phone] Isauro DOS SANTOS, Alejo Unavailable [phone] Reason for Referral Date Encounter Description Provider Reason for Referral 06/10/21 Samir Barber DO Request Consultation By Specialist Reason for Visit and Chief Complaint visit for: Emilia is here for medical clearance. Please refer to documentatio n from her surgeon she is scheduled for left robot-assisted partial nephrectomy June 26, 2021. She had labs for the hospital today's EKG is perfectly normal . She is going for chest x-ray today. ~ ~She has been active quite a bit over t he years she climbs stairs every day to get into her apartment she will carry th ings up the stairs no problems with exertional chest discomfort chest pain palpi tations lightheaded or dizzy. No progressive respiratory symptoms and again tod david's EKG is normal ~ ~She has had mild element of COPD over the years really has not needed to be on steroids or used inhalers over the years she has no dyspnea or cough or respiratory complaints at this time. She is not had spirometry in a long time but we are putting that kind of testing on hold with the pandemic. ~ ~Assessment and plan as documented below chronic medical problems are well cont rolled cleared for this proposed surgical procedure. TIME 31 min - The Chief Com plaint is: Patient ambulates to room, here today for pre op clearance. Patient is scheduled for partial nephrectomy on 06/26 under general anesthesia, no concer ns today, screened for 10 minutes. 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 - 12:00AM Samir nance DO Active Note: Per pathology report d ated 12/11/15 Hyperlipidemia 03/25/2011 - 12:00AM Samir kendrick DO Active Chronic Obstructive Pulmonary Disease 01/17/2011 - 12:00AM Samir Barber DO Active Note: 35 pack year history q uit in 2005- screen till 2020 Hypertension (Systemic) 01/17/2011 - 12:00AM Samir Barber DO Active Note: Unchanged History of Vaginal Hysterectomy 07/27/1983 - 12:00AM Fara Barber DO Active Note: Benign pathology Past Visits Onset Date - Time Resolved Date - Time Provider Co ndition Status Hiatal Hernia 02/14/2021 - 4:55PM Tova Last RN Act isaac Note: gi scope 02/13/21 Lung Neoplasm 11/16/2014 - 12:00AM Samir Barber DO Active Note: CT chest 05/22/2014. [address] recommended Internal Hemorrhoids 09/16/2013 - 12:00AM Samir chaney DO Active Note: see colonoscopy dated 09/14/13- repeat in 5-10 years Hypothyroidism Subclinical 03/25/2011 - 12:00AM Kiran Barber DO Active Depression 01/17/2011 - 12:00AM Samir Barber DO Active Bulging Intervertebral Disc Lumbar 01/17/2011 - 12:00AM Samir Barber DO Active Note: Averages one Celebrex /week.-MRI on file. Diverticulosis of Colon (without Hemorrhage) 01/17/2011 - 12:00A M Samir Barber DO Active Note: reported on scope - We instein 2002 Fiber discussed-due in 2011 for repeat scope Isauro Gerd 01/17/2011 - 12:00AM Samir Barber DO Active Note: EGD May 2002 on r ecord History of Tobacco Use 01/17/2011 - 12:00AM Samir Barber DO Active Note: Patient smoked 1 PPD x 35 years, tobacco free since 2005 History of Lung Surgery 07/27/1988 - 12:00AM Samir Barber DO Active Note: BLEB -history of spont aneous pneumothorax, status post thoracotomy 1988 Plan of Treatment Pending Tests Order Diagnosis Results Due Ordering Provi rolf Lab XR CHEST 2 VW 06/11/21 Samir ramirez DO Future Appointments Date Time Location Provider [facility] 06/25/2021 2:00PM [facility] Samir chaney DO Future Tests Order Diagnosis Results Due Ordering Provid er Visit Summary - *Standard Visit wLab Visit Summary with Labs Essential (primary) hypertension 04/29/21 Samir Barber DO Records Urology 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 06/10/21 Samir Barber DO In House Procedures - EKG EKG with Interpretation & Report E ssential (primary) hypertension 06/10/21 Samir Barber DO Visit Summary - *Standard Visit wLab Visit Summary with Labs Essential (primary) hypertension 06/10/21 Samir Barber DO - Instructions for patient - Return to the clinic if condition wors ens or new symptoms arise - Follow-up visit Assessments Includes: Assessments from this encounter - Hypertension - Chronic obstructive pulmonary disease - Richter's esophagus - Hyperlipidemia - Renal neoplasm of uncertain behavior A ssessment and plan as documented below chronic medical problems are well controlled cleared for this proposed surgical procedure See updated problem list for history/discussion/assessment and [...] Medicati ons Current Medications (continue as prescribed) CeleBREX 200 [...] Vital Signs from this encounter Vital Name 06/10/2021 09:18A Blood Pressure Sitting L 132/78 BP Cuff Size Regular Pulse Rate-Sitting (bpm) 69 Pulse Rhythm Regular Respiration Rate (breaths/min) 20 Temp-Tympanic (F) 97.1 Weight (lb) 145 Pain Level 0 Oxygen Saturation (%) 98 Flow Rate (l/min) (None (Room Air)) FiO2 (%) 21 Results Includes: Results discussed during this encounter CBC w/ Auto Diff [facility] Ordered by Samir Barber DO on 11/23/[address], [address] Collected: 11/23/2020 Reported: 11/23/2020 13:57 tel : BASO # (AUTO) 0.04 10\^3/uL (0.00-0.20) N (Normal) Note: Responsible Observer: BASO # (AUTO ) BASO # (AUTO) 100.1500 (A) BASO % (AUTO) 0.8 % (0.0-2.0) N (Normal) Note: Responsible Observer: BASO % (AUTO ) BASO % (AUTO) 100.1250 (A) EOS # (AUTO) 0.14 10\^3/uL (0.00-1.10) N (Normal) Note: Responsible Observer: EOS # (AUTO) EOS # (AUTO) 100.1450 (A) EOS % (AUTO) 2.8 % (0.0-11.0) N (Normal) Note: Responsible Observer: EOS % (AUTO) EOS % (AUTO) 100.1200 (A) GRAN # (AUTO) 2.46 10\^3/uL (1.50-6.50) N (Normal) Note: Responsible Observer: GRAN # (AUTO ) GRAN #(AUTO) 100.1325 (A) GRAN % (AUTO) 49.8 % (42.0-75.0) N (Normal) Note: Responsible Observer: GRAN % (AUTO ) GRAN % (AUTO) 100.1000 (A) HEMATOCRIT 37.3 % (35.0-46.0) N (Normal) Note: Responsible Observer: HCT HEMATOCR IT 100.0400 (A) HEMOGLOBIN 13.2 G/DL (11.5-15.6) N (Normal) Note: Responsible Observer: HGB HEMOGLOB IN 100.0300 (A) IG # (AUTO) 0.0 10\^3/uL (<0.5) None Note: Responsible Observer: IG # (AUTO) IG # (AUTO) 100.1260 (A) IG % (AUTO) 0.2 % (1.00-5.00) None Note: Responsible Observer: IG % (AUTO) IG % (AUTO) 100.1255 (A) LYMPH # (AUTO) 1.6 k/uL (1.0-5.0) N (Normal) Note: Responsible Observer: LYMPH # (AUT O) LYMPH # (AUTO) 100.1350 (A) LYMPH % (AUTO) 32.7 % (20.0-51.0) N (Normal) Note: Responsible Observer: LYMPH % (AUT O) LYMPH % (AUTO) 100.1100 (A) MCH 31.5 PG (27.0-34.0) N (Normal) Note: Responsible Observer: MCH MCH 100 .0600 (A) MCHC 35.4 G/DL (32-36) N (Normal) Note: Responsible Observer: MCHC MCHC 1 00.0650 (A) MCV 89.0 FL (80.0-100.0) N (Normal) Note: Responsible Observer: MCV MCV 100 .0550 (A) MONO # (AUTO) 0.68 k/uL (0.20-1.50) N (Normal) Note: Responsible Observer: MONO # (AUTO ) MONO # (AUTO) 100.1400 (A) MONO % (AUTO) 13.7 % (2.0-15.0) N (Normal) Note: Responsible Observer: MONO % (AUTO ) MONO% (AUTO) 100.1150 (A) MPV 9.1 FL (8.7-13.2) N (Normal) Note: Responsible Observer: MPV MPV 100 .0950 (A) PLATELET COUNT 325 10\^3/uL (130-400) N (Normal) Note: Responsible Observer: PLT PLATELET COUNT 100.0850 (A) RED BLOOD COUNT 4.19 10\^6/uL (3.90-5.20) N (Normal) Note: Responsible Observer: RBC RED BLOO D COUNT 100.0250 (A) RDW 12.2 % (11.5-14.5) N (Normal) Note: Responsible Observer: RDW RDW 100 .0700 (A) WHITE BLOOD COUNT 4.95 10\^3/uL (4.00-10.50) N (Normal) Note: Responsible Observer: WBC WHITE BL OOD COUNT 100.0150 (A) Reviewed by Samir Barber DO on ; All test results are final unless otherwise noted. MICROALBUMIN RANDOM [facility] Ordered by Samir Barber DO on 11/23/[address], [address] Collected: 11/23/2020 Reported: 11/23/2020 14:27 tel : CREAT RANDOM URINE 60.3 MG/DL None Note: No Normal Ranges Available for th is Procedure.Responsible Observer: UR CREAT UR CREATININE 200.3655 (A) MICROALBUMIN,URINE 3.0 MG/L None Note: Responsible Observer: UR MICROALB RND UR MICROALBUMIN RANDOM 200.4000 (A) MICROALBUM/CREATININE RATIO,UR 5.0 UG/MG_CR (0.0-30.0) N (Normal) Note: Responsible Observer: UR MICROALB/ CRE UR MICROALBUMIN/CREAT RATIO 200.4100 (A) Reviewed by Samir Barber DO on ; All test results are final unless otherwise noted. COMPREHENSIVE METABOLIC PANEL [facility] Ordered by Samir Barber DO on 11/23/[address], [address] Collected: 11/23/2020 Reported: 11/23/2020 14:27 tel :[phone] ALB/GLOB RATIO 2.4 G/DL (1.0-3.0) N (Normal) Note: Responsible Observer: A/G RATIO AL B/GLOB RATIO 300.4100 (A) ALBUMIN 4.7 G/DL (3.0-5.1) N (Normal) Note: Responsible Observer: ALB ALBUMIN 300.3900 (A) ALKALINE PHOSPHATASE 63 U/L (40-140) N (Normal) Note: Responsible Observer: ALK PHOS ALK MERARY PHOSPHATASE 300.3110 (A) ALT 18 U/L (5-48) N (Normal) Note: Responsible Observer: ALT/SGPT ALT 300.3100 (A) AST 20 U/L (5-40) N (Normal) Note: Responsible Observer: AST/SGOT AST 300.3050 (A) BUN/CREAT RATIO 21 (8-36) N (Normal) Note: Responsible Observer: BUN/CREAT RA PAOLA BUN/CREAT RATIO 300.0450 (A) BILIRUBIN,TOTAL 0.5 MG/DL (0.1-1.3) N (Normal) Note: Responsible Observer: TOTAL BILI T OTAL BILIRUBIN 300.2700 (A) BLOOD UREA NITRO 17 MG/DL (7-25) N (Normal) Note: Responsible Observer: BUN BLOOD UR EA NITROGEN 300.0350 (A) CA 9.7 MG/DL (8.7-10.5) N (Normal) Note: Responsible Observer: CA CALCIUM 300.2200 (A) CHLORIDE 101 MEQ/L (94-110) N (Normal) Note: Responsible Observer: CL CHLORIDE 300.0200 (A) CARBON DIOXIDE 27 MEQ/L (22-33) N (Normal) Note: Responsible Observer: CO2 CARBON D IOXIDE 300.0250 (A) CREATININE 0.8 MG/DL (0.6-1.4) N (Normal) Note: Responsible Observer: CREAT CREATI NINE 300.0400 (A) ANION GAP 11 (5-16) N (Normal) Note: Responsible Observer: ANION GAP AN ION GAP 300.0300 (A) GFR 71.3 ML/MIN None Note: Stage G2 - Mildly decreased kidne y function The GFR is an estimate of the Glomerular Filtration Rate. It is an aid to assess a patient's renal function. It is not a conclusive diagnosis of kidney disease. GFR normal is >=90 The MDRD GFR calculation is considered valid between the ages of 18 and 75 years only.Responsible Observer: GFR GFR 300.0410 (A) GLOBULIN 2.0 G/DL (1.5-3.5) N (Normal) Note: Responsible Observer: GLOB GLOBULI N 300.4050 (A) GLUCOSE 79 MG/DL (70-100) N (Normal) Note: Responsible Observer: GLU GLUCOSE 300.0500 (A) POTASSIUM 3.9 MEQ/L (3.5-5.3) N (Normal) Note: Responsible Observer: K POTASSIUM 300.0150 (A) SODIUM 135 MEQ/L (135-145) N (Normal) Note: Responsible Observer: NA SODIUM 3 00.0100 (A) TOTAL PROTEIN 6.7 G/DL (5.9-8.3) N (Normal) Note: Responsible Observer: TP TOTAL PRO TEIN 300.3750 (A) Reviewed by Samir Barber DO on ; All test results are final unless otherwise noted. LIPID PANEL [facility] Ordered by Samir Barber DO on 11/23/[address], [address] Collected: 11/23/2020 Reported: 11/23/2020 14:27 tel :[phone] CHOL/HDL RATIO 3.9 (0-4.3) N (Normal) Note: Responsible Observer: CHOL/HDL RAT IO CHOL/HDL RATIO 300.4700 (A) CHOLESTEROL 289 MG/DL (125-200) H (High) Note: Responsible Observer: CHOL CHOLEST BRONSON 300.4350 (A) HDL CHOLESTEROL 74 MG/DL (32-96) N (Normal) Note: Responsible Observer: HDL HDL CHOL ESTEROL 300.4600 (A) LDL CHOLESTEROL 181 MG/DL (50-130) H (High) Note: Responsible Observer: LDL LDL CHOL ESTEROL 300.4400 (A) TRIGLYCERIDES 169 MG/DL (45-150) H (High) Note: Responsible Observer: TRIG TRIGLYC ERIDES 300.4300 (A) Reviewed by Samir Barber DO on ; All test results are final unless otherwise noted. [facility] Ordered by Samir Barber DO on 11/23/[address], [address] Collected: 11/23/2020 Reported: 11/23/2020 14:27 tel : TSH 2.644 uIU/ML (0.470-4.200) N (Normal) Note: Patients should not be tested for 72 hours post fluorescein dye angiography. A false depression of result may occur.Responsible Observer: TSH TSH 300.5500 (A) Reviewed by Samir Barber DO on [...] Social History Description Last Updated Smoking status 06/10/2021 : Former smoker 06/10/2021 Alcohol use (female) less than 4 drinks [...] Date Check-In Time Check-Out Time D iagnosis Pre Op Samir Barber [facility] 06/10/2021 8:54AM 11:59PM Chronic Obstructive Pulmonary Disease, Richter's Esophagus, Hypertension (Systemic), Hyperlipidemia, Renal Neoplasm Uncertain Behavior Insurance Includes: Active Insurance Policies Plan Name Member ID Group # Subscriber Relationship Effective Da nir 1 - [employer] [id number] Emilia Clarke Self 07/2016 - Unknown 2 - [facility] 3,3000 [id number] Du Vitale 06/05 - Unknown Advance Directives Includes: Current Advance Directives Directive Pat Aware Third Alliance Party Effective Date Reviewed Status RHIO Yes [...] Health Concerns Includes: Health Concerns for current assessments Hypertension (systemic) Onset 01/17/2011 Goals Includes: Active Goals for current assessments Goal is to keep BP less than 140/90 Added 01/17/2011 by Provider Health Concern: Hypertension (systemic) Interventions Includes: Interventions for current assessments follow self management form Added 01/17/2011 Goal: Goal is to keep BP less than 140/90 Evaluations & Outcomes Includes: Evaluations & Outcomes for current assessments Goal converted from Patient Problem data . Goal is currently In Progress. Added 01/17/2011 - In Progress Goal: Goal is to keep BP less than 140/90
--- OUTSIDE RECORDS SUMMARY | 2021-06-26 06:21 | CCD ---
Author Author [facility] Organization [facility] Address Unknown Phone Unavailable Care Team Providers Care Referral Management Liaison Name Role Phone Nona Crowley Unavailable PROBLEMS Type Condition ICD9-CM Code EQV08-IQ Code Onset Dates Condition S tatus W/U Status Risk SNOMED Code Notes Problem Hypertension 401.9 Active confirmed 1162507 3 Problem Reflux esophagitis 530.11 Active confirmed 2 17710153 Problem Hormone replacement therapy (postmenopausal) V07.4 Active confirmed 378163103 Problem Hyperlipidemia 272.4 Active confirmed 68034 004 Problem Postmenopausal status (age-related) (natural) V49.81 Active confirmed 66760089 Problem Hyperlipidemia, unspecified E78.5 Active confirmed 81677941 Problem Cystocele and rectocele with incomplete uterovaginal prola pse N81.2 Active confirmed 200427417 Problem Hypothyroidism 244.9 Active confirmed 06095 008 Problem Vaginal atrophy N95.2 Active confirmed 2971 18430 Problem Depressive disorder, not elsewhere classified 311 Active confirmed 58437508 Problem Essential (primary) hypertension I10 Active conf irmed 44371039 Problem Adnexal tenderness, right R10.2 Active confirmed 957930067 Problem Hx of hysterectomy Z90.710 Active confirmed 511837490 Problem Symptom associated with female genital organs N94. 9 Active confirmed 954948018 ALLERGIES Allergen (clinical drug ingredient) Drug/Non Drug Allergy do cumented on EMR Reaction Allergy Type Onset Date Status lisinopril Lisinopril([facility] Code:[address]-30) coughing Drug Allergy 01/04/2019 Active ENCOUNTERS from 1950 to 2021-06-06 Encounter Location Date Provider Diagnosis [facility] [id number] [phone] [place] [address] May, Nona Crowley Renal neoplasm D49.519 and Pre-op testin g Z01.818 IMMUNIZATIONS No Information SOCIAL HISTORY Tobacco Use: Social History Observation Description Date Details (start date - stop date) Former Smoker Sex Assigned At : Social History Observation Description Sex Assigned At Unknown Language: Question Answer Notes Languages spoken: Nigerian Buddhist: Question Answer Notes Buddhist No episcopal beliefs that would impact health care. Sexual [...] REASON FOR REFERRAL No Information VITAL SIGNS Weight 142 lbs May, Weight-kg 64.41 kg May, Height 63.25 in May, BMI 24.95 kg/m2 May, Heart Rate 69 /min May, Respiratory Rate 18 /min May, Temperature 97.5 degrees Fahrenheit May, Oximetry 98% May, Blood pressure systolic 132 mm Hg May, Blood pressure diastolic 78 mm Hg May, MEDICATIONS Medication SIG (Take, Route, Frequency, Duration) Notes Start Da te End Date Status Celecoxib 200 MG TAKE ONE CAPSULE BY MOUTH TW ICE A DAY NEEDED WITH FOOD Oral for 30 Active Estrace 0.1 MG/GM as directed Vaginal 2-3 nights weekly for 30 d ay(s) Oct, Active Hydrochlorothiazide 25 25 mg 1 tab(s) oral once a day Active Vitamin D3 1000 UNIT 1 tablet Orally Once a day Active Omeprazole 40 MG 1 capsule Orally bid Active PROCEDURES No Information RESULTS No Results REASON FOR VISIT neoplasm of uncertain behavior od unspecified kidney MEDICAL (GENERAL) HISTORY Type Description Date Medical History hx back injury Medical History gerd Medical History depression Medical History hypertension Medical History bingham's esophagus Medical History C-diff -Sept 2020 Medical History spontaneous pneumothorax Surgical History hysterectomy, unilateral oophorectomy (? side) 1984 Surgical History lung surgery (blebs) Surgical History colonoscopy - about 2003 2013 Surgical History EGD fall of 2015 Surgical History hernia repair bilateral groin 01/06/17 Surgical History CYSTOSCOPY 12/01/2018 Surgical History facial cystocele repair, fac ial rectocele repair, vaginal vault suspension 12/21/2018 Goals Section No Information Health Concerns No Information MEDICAL EQUIPMENT No Information MENTAL STATUS No Information FUNCTIONAL STATUS No Information ASSESSMENTS Encounter Date Diagnosis Assessment Notes Treatment Notes Treatm ent Clinical Notes May, Renal neoplasm (ICD-10 - D49.519) May, Pre-op testing (ICD-10 - Z01.818) partial nephrectomy information given to patient May, Other Nephrectomy mate rial was printed,Nephrectomy home care material was printed PLAN OF TREATMENT Treatment Notes Assessment Notes Clinical Notes Pre-op testing partial nephrectomy information given to patient Pending Tests Test Name Order Date PLZ CHEST 2 VIEW 2021-06-04 Electrocardiogram (EKG) 2021-06-04 Future Test Test Name Order Date CBC - Complete Blood Count [id number] PT & APTT [id number] URINE CULTURE [id number] UA URINALYSIS [id number] Comprehensive Metabolic Profile (CMP) [id number] Insurance Providers Payer Name Payer Address Payer Phone Insured Name Patient Relati onship to Insured Coverage Start Date Coverage End Date [facility] [address] [facility] [id number] Du Guevara MEDICARE Part A and B [address] [facility] [id number] MIGUEL GUEVARA
[2021-06-26] MEDS ORDERED: LIDOCAINE 1% SDV 30ML VIAL As Ordered ONE (07:16)
[2021-06-26] MEDS ORDERED: BUPIVACAINE HCL 0.25% 30ML VIAL As Ordered ONE (07:16)
[2021-06-26] MEDS ORDERED: MIDAZOLAM INJ 2MG/2ML VIAL (J2250 PER 1MG) As Ordered ONE (07:17)
[2021-06-26] MEDS ORDERED: LIDOCAINE 2% 100MG/5ML SDV (FOR ANES.) As Ordered ONE (07:17)
[2021-06-26] MEDS ORDERED: propofoL 200 MG/20 ML VIAL As Ordered ONE (07:17)
[2021-06-26] MEDS ORDERED: fentaNYL 250 MCG/5 ML INJECTION (J3010) As Ordered ONE (07:17)
[2021-06-26] MEDS ORDERED: ROCURONIUM BROMIDE 50 MG/5 ML VIAL As Ordered ONE ×3 (07:17→11:02)
[2021-06-26] MEDS ORDERED: ePHEDrine SULFATE 25 MG/5 ML(5MG/ML) SYRINGE As Ordered ONE ×2 (07:58→09:35)
[2021-06-26] MEDS ORDERED: dexameTHASONE 4 MG/ML 1ML VIAL (J1100 PER 1MG) As Ordered ONE (08:11)
[2021-06-26] MEDS ORDERED: SUGAMMADEX SODIUM 500 MG/5 ML VIAL (BRIDION) As Ordered ONE (08:22)
[2021-06-26] MEDS ORDERED: METOCLOPRAMIDE INJ 10MG/2ML VIAL (J2765 PER 1) As Ordered ONE (08:22)
[2021-06-26] MEDS ORDERED: HYDROmorphone HCL 2 MG/ML 1ML VIAL As Ordered ONE (08:22)
[2021-06-26] MEDS ORDERED: ONDANSETRON 4MG/2ML VIAL As Ordered ONE (08:22)
[2021-06-26] MEDS ORDERED: ACETAMINOPHEN 1000MG 100ML IV BTL (OFIRMEV) (J0131 PER 10MG) As Ordered ONE (08:32)
[2021-06-26] MEDS ORDERED: MANNITOL 25% 12.5 GM/50 ML VIAL (J2150) As Ordered ONE ×2 (09:51→09:52)
[2021-06-26] MEDS ORDERED: oxyCODONE 5MG TAB PO PRN (12:20)
[2021-06-26] MEDS ORDERED: LR 1,000 ML IV SCH (12:20)
[2021-06-26] MEDS ORDERED: ONDANSETRON 4MG/2ML VIAL IV PRN (12:20)
[2021-06-26] MEDS: fentaNYL 100 MCG/2 ML INJECTION (J3010) IV PRN ×4 (12:29→13:02)
[2021-06-26 12:41] LABS: HEMATOCRIT 37.7 % (36.0-47.0); HEMOGLOBIN 12.4 g/dl (12.0-15.5); MEAN CORPUSCULAR HEMOGLOBIN 31.1 pg (27.0-33.0); MEAN CORPUSCULAR HGB CONC 32.9 g/dl (32.0-36.5); MEAN CORPUSCULAR VOLUME 94.5 fl (80.0-96.0); PLATELET COUNT, AUTOMATED 207 10^3/uL (150-450); RED BLOOD COUNT 3.99 10^6/uL (4.00-5.40); WHITE BLOOD COUNT 9.9 10^3/uL (4.0-10.0)
--- NOTE | 2021-06-26 12:55 | ROOPDOC ---
[facility] Report Of Operation Report of Operation DATE OF PROCEDURE: 06/26/21 PREPROCEDURE DIAGNOSIS: Left renal neoplasm. POSTPROCEDURE DIAGNOSIS: Left renal neoplasm. PROCEDURE: Left robotic-assisted laparoscopic partial nephrectomy, left renal exploration, intraoperative ultrasound for tumor mapping. SURGEON: Bryson Mcghee MD COMMERCIAL SALES SPECIALIST: Destiny Montiel NP ANESTHESIA: General OPERATIVE INDICATIONS: This is a 71 year old female that was found to have an approximately 8cm Bosniak 4 left renal cyst. Given the concern for malignancy, it was recommended she undergo the above procedure for treatment. DESCRIPTION OF PROCEDURE: The patient was brought to the operating room where general anesthesia was induced. Prophylactic antibiotics were infused. A Sierra catheter was inserted into the bladder under sterile conditions and the balloon was filled with sterile water. She was then placed in the right lateral decubitus position. All pressure points were appropriately padded and an axillary roll was placed. We then secured the patient to the table with tape. Her abdomen was then prepped and draped in the usual sterile fashion. Next, an 8mm incision was made in line with the 11th rib along the lateral border of the rectus. Pneumoperitoneum was achieved with a Veress needle. Next, an 8mm port was placed for the camera. At this point, the left robotic port was placed off the costal margin. Two right hand robotic ports were then placed with one between the anterior superior iliac spine and the hip and the other one just caudal to the camera port. Last the 12 mm medical receptionist assistant port was placed inferior and medial to the camera port. The robot was then docked. The spleen was then dissected off of Gerota's fascia. Next the left colon was dissected off of Gerota's fascia. The large cystic mass could be seen extending off the lower pole of the left kidney. At this point the left gonadal vein was identified and it was traced cephalad to its insertion into the left renal vein. Just posterior and caudal to the left renal vein, the left renal artery was identified. This was carefully dissected. Gerota's fascia was then opened and I defatted the kidney. I dissected around the cystic mass. The kidney was then mobilized. Ultrasound was utilized to luisito the boundaries of the mass. Next 2 bulldog clamps were placed on the renal artery prior to resecting the mass. The mass was resected completely and it appeared that we had a good margin. Once the mass was removed, the renorrhaphy was performed first by ligating all vessels in the base of resection with a #2-0 vicryl suture using figure of eight stitches. The capsule of the kidney was then reapproximated using #0-vicryl suture with Weck clips to cinch down the suture. Once this was done the clamps were removed and hemostasis was excellent. The warm ischemia time was 38 minutes. Next Alondra and Tisseel were applied to the resection bed. I then punctured the cystic mass and drained all of the fluid to make it easier to fit it in the endocatch bag. It was then placed in the endocatch bag. A Pratik Hurtado drain was positioned just lateral to the kidney. The robot was undocked after confirming hemostasis within the abdomen. The specimen was then extracted from the 12mm port site. A Rosa fascial closure device was utilized to place #0 vicryl free ties through the fascia of the extraction site. The suture was then tied down. The abdomen was observed again and there was no bleeding from the left kidney or the hilum. We then removed all the ports under direct vision and there was no bleeding from any of the port sites. At this point, all the incisions were thoro ughly irrigated. We then closed the skin of each site using a running #4-0 subcuticular Monocryl stitch. The Pratik Hurtado drain was secured to the skin using #3-0 Ethilon suture. Local anesthetic was then applied to each incision and Dermabond was then applied and this marked the conclusion of the procedure. The patient was then taken out of the left lateral decubitus position, awakened from anesthesia and transported to the recovery room in stable condition. ESTIMATED BLOOD LOSS: 175 mL INTRAOPERATIVE COMPLICATIONS: None SPECIMENS: Left renal cystic mass WARM ISCHEMIA TIME: 38 minutes NORMAL LEFT RENAL PARENCHYMA SPARED: approximately 95% PLAN: The patient will be admitted to the hospital postoperatively and she will be discharged home once her renal function is stable and she is tolerating a regular diet. BRYSON MCGHEE MD Jun 26, 2021 07:42
[2021-06-26 13:10] LABS: BLOOD UREA NITROGEN 11 MG/DL (7-18); CALCIUM LEVEL 8.6 MG/DL (8.8-10.2); CARBON DIOXIDE LEVEL 28 MEQ/L (21-32); CHLORIDE LEVEL 103 MEQ/L (98-107); CREATININE FOR GFR 0.84 MG/DL (0.55-1.30); GLOMERULAR FILTRATION RATE > 60.0 (>45); GLUCOSE, FASTING 156 MG/DL (70-100); POTASSIUM SERUM 3.3 MEQ/L (3.5-5.1); SODIUM LEVEL 140 MEQ/L (136-145)
[2021-06-26 14:30] VITALS: BP 135/80
[2021-06-26 15:02] VITALS: BP 135/88
[2021-06-26] MEDS: ceFAZolin SOD 1 GM in D5W MINI-BAG PLUS 50 ML IV SCH ×2 (15:40→23:59)
[2021-06-26] MEDS: NS 1,000 ML IV SCH (15:41)
[2021-06-26] MEDS: CelecoXIB (CeleBREX) 100 MG CAP PO SCH (15:43)
[2021-06-26] MEDS: PERCOCET 5MG/325MG TAB PO PRN ×2 (15:44→20:44)
[2021-06-26 16:00] VITALS: BP 133/82
[2021-06-26 17:00] VITALS: BP 126/78
[2021-06-26 18:00] VITALS: BP 129/88
[2021-06-26] MEDS: OMEPRAZOLE 20 MG CAP PO SCH (20:43)
[2021-06-26] MEDS: DOCUSATE SODIUM 100MG CAPSULE PO SCH (20:44)
[2021-06-26] MEDS: LOSARTAN 50MG TABLET PO SCH (20:45)
[2021-06-26 22:00] VITALS: BP 126/71
[2021-06-27] MEDS: ONDANSETRON 4MG/2ML VIAL IV PRN (00:11)
[2021-06-27] MEDS: ACETAMINOPHEN TAB 650MG DOSE (2X325MG) PO PRN ×3 (00:11→21:50)
[2021-06-27 01:00] VITALS: O2SAT 98
[2021-06-27 03:24] VITALS: BP 127/71
[2021-06-27] MEDS: NS 1,000 ML IV SCH (03:34)
[2021-06-27] MEDS: PERCOCET 5MG/325MG TAB PO PRN ×3 (03:34→21:50)
--- NOTE | 2021-06-27 07:43 | IPNPDOC ---
Subjective Review oF Systems Chief Complaint The patient is a 71-year-old female admitted with a reason for visit of Left Renal Mass. Events since Last Encounter No acute events o/n. Patient having a lot of abdominal discomfort from gas pain. Mild nausea, but no vomiting. No flatus yet. Has not ambulated yet. No f/c/ns. Objective Physical Examination General Exam: Alert, Cooperative, No Acute Distress ABDOMEN EXAM: Soft, Tenderness (mild), Other (distended, tympanic to percussion; incisions clean/dry/intact; CHARLES w/ serosanguinous fluid) Vital Signs/I&O Vital Signs Date Time Temp Pulse Resp B/P (MAP) Pulse Ox O2 Delivery O2 Flow Rate FiO2 06/27/21 04:19 2.0 06/27/21 04:04 20 06/27/21 03:24 98.3 82 127/71 (89) 95 Room Air I&O- Last 24 Hours up to 6 AM 06/27/21 06:00 Intake Total 2220 ml Output Total 1105 ml Balance 1115 ml Laboratory Data Labs 24H Laboratory Tests 2 06/26/21 12:25: Nucleated Red Blood Cells % (auto) 0.0, Anion Gap 9, Glomerular Filtration Rate > 60.0, Calcium Level 8.6L CBC/BMP Laboratory Tests 06/26/21 12:25 Assessment/Plan Date Seen The patient was seen on 06/27/21. Patient Summary This is a 71 y/o F POD1 s/p L robotic partial nephrectomy. Labs have not been drawn yet. She is having a moderate amount of discomfort from gas pain. Moderately distended on exam. No vomiting. Plan/VTE VTE Prophylaxis Ordered?: Yes VTE Exclusion Mechanical Proph: N/A:VTE Prophy Ordered Plan/Urinary Catheter Urinary Catheter: D/C Sierra Plan - decrease IVF - dulcolax suppository - discussed w/ patient the need to try to minimize narcotics and try tylenol mainly for pain - ambulate - SCDs when in bed - check morning labs - continue home meds - CLD -> advance as tolerated - plan for discharge once ileus resolved BRYSON MCGHEE MD Jun 27, 2021 07:43
[2021-06-27] MEDS ORDERED: BISACODYL 10 MG SUPP PR ONE (08:00)
[2021-06-27] MEDS: OMEPRAZOLE 20 MG CAP PO SCH ×2 (08:43→21:51)
[2021-06-27] MEDS: CelecoXIB (CeleBREX) 100 MG CAP PO SCH (08:43)
[2021-06-27] MEDS: DOCUSATE SODIUM 100MG CAPSULE PO SCH ×2 (08:43→21:00)
[2021-06-27 09:07] LABS: HEMATOCRIT 31.5 % (36.0-47.0); MEAN CORPUSCULAR HEMOGLOBIN 31.1 pg (27.0-33.0); MEAN CORPUSCULAR VOLUME 94.3 fl (80.0-96.0); PLATELET COUNT, AUTOMATED 215 10^3/uL (150-450); RED BLOOD COUNT 3.34 10^6/uL (4.00-5.40); WHITE BLOOD COUNT 8.1 10^3/uL (4.0-10.0)
[2021-06-27 09:12] LABS: HEMOGLOBIN 10.4 g/dl (12.0-15.5)
[2021-06-27 09:22] LABS: BLOOD UREA NITROGEN 14 MG/DL (7-18); CALCIUM LEVEL 8.3 MG/DL (8.8-10.2); CARBON DIOXIDE LEVEL 29 MEQ/L (21-32); CHLORIDE LEVEL 100 MEQ/L (98-107); CREATININE FOR GFR 0.86 MG/DL (0.55-1.30); GLOMERULAR FILTRATION RATE > 60.0 (>45); GLUCOSE, FASTING 96 MG/DL (70-100); POTASSIUM SERUM 3.3 MEQ/L (3.5-5.1); SODIUM LEVEL 136 MEQ/L (136-145)
[2021-06-27] MEDS ORDERED: KCL 40MEQ IN D5/0.45NS 1000ML 1,000 ML IV SCH (09:45)
[2021-06-27 10:19] VITALS: BP 137/82
[2021-06-27 16:46] VITALS: O2SAT 96
[2021-06-27 21:50] VITALS: BP 141/87
[2021-06-27] MEDS: LOSARTAN 50MG TABLET PO SCH (21:50)
[2021-06-27 22:00] VITALS: BP 141/87
[2021-06-28 03:15] VITALS: O2SAT 96
[2021-06-28] MEDS: PERCOCET 5MG/325MG TAB PO PRN ×2 (04:01→09:14)
[2021-06-28] MEDS: ACETAMINOPHEN TAB 650MG DOSE (2X325MG) PO PRN (04:02)
[2021-06-28 06:43] VITALS: BP 142/84
[2021-06-28 06:46] LABS: HEMATOCRIT 31.8 % (36.0-47.0); HEMOGLOBIN 10.4 g/dl (12.0-15.5); MEAN CORPUSCULAR HEMOGLOBIN 30.5 pg (27.0-33.0); MEAN CORPUSCULAR HGB CONC 32.7 g/dl (32.0-36.5); MEAN CORPUSCULAR VOLUME 93.3 fl (80.0-96.0); PLATELET COUNT, AUTOMATED 230 10^3/uL (150-450); RED BLOOD COUNT 3.41 10^6/uL (4.00-5.40); WHITE BLOOD COUNT 7.8 10^3/uL (4.0-10.0)
[2021-06-28 07:17] LABS: BLOOD UREA NITROGEN 9 MG/DL (7-18); CALCIUM LEVEL 8.8 MG/DL (8.8-10.2); CARBON DIOXIDE LEVEL 31 MEQ/L (21-32); CHLORIDE LEVEL 101 MEQ/L (98-107); CREATININE FOR GFR 0.64 MG/DL (0.55-1.30); GLOMERULAR FILTRATION RATE > 60.0 (>45); GLUCOSE, FASTING 94 MG/DL (70-100); POTASSIUM SERUM 3.5 MEQ/L (3.5-5.1); SODIUM LEVEL 136 MEQ/L (136-145)
[2021-06-28] MEDS: CelecoXIB (CeleBREX) 100 MG CAP PO SCH (09:15)
[2021-06-28] MEDS: DOCUSATE SODIUM 100MG CAPSULE PO SCH (09:15)
[2021-06-28] MEDS: OMEPRAZOLE 20 MG CAP PO SCH (09:15)
--- NOTE | 2021-06-28 10:54 | IPNPDOC ---
Subjective Review oF Systems Chief Complaint The patient is a 71-year-old female admitted with a reason for visit of Left Renal Mass. Events since Last Encounter Patient noted that she had a large episode of diarrhea o/n. She is concerned about having C dif as she was treated for this 3 months ago. She has not had any diarrhea since. She notes improvement in her abdominal bloating and pain. She ambulated some yesterday. Denies n/v. No f/c/ns. Objective Physical Examination General Exam: Alert, Cooperative, No Acute Distress ABDOMEN EXAM: Soft, Tenderness (mild), Other (nondistended today; much softer; incisions clean/dry/intact; CHARLES w/ serosanguinous fluid) Skin Exam: Nl turgor and temperature Neuro Exam: Normal Speech Psych Exam: Mental status NL, Mood NL Vital Signs/I&O Vital Signs Date Time Temp Pulse Resp B/P (MAP) Pulse Ox O2 Delivery O2 Flow Rate FiO2 06/28/21 10:01 18 06/28/21 09:14 94 Room Air 06/28/21 06:43 98.4 74 142/84 (103) 06/28/21 03:15 2.0 I&O- Last 24 Hours up to 6 AM 06/28/21 06:00 Intake Total 1510 ml Output Total 580 ml Balance 930 ml Laboratory Data Labs 24H Laboratory Tests 2 06/28/21 06:00: Nucleated Red Blood Cells % (auto) 0.0, Anion Gap 4L, Glomerular Filtration Rate > 60.0, Calcium Level 8.8 CBC/BMP Laboratory Tests 06/28/21 06:00 Assessment/Plan Date Seen The patient was seen on 06/28/21. Patient Summary This is a 71 y/o F POD2 s/p L robotic partial nephrectomy. Other than diarrhea o/n she feels better today. WBC normal at 7.8. Hb stable at 10.4. Cr 0.6. Good UOP. Normal CHARLES output. Plan/VTE VTE Prophylaxis Ordered?: Yes VTE Exclusion Mechanical Proph: N/A:VTE Prophy Ordered Plan - tylenol or percocet prn pain - send stool for C dif if diarrhea continues - continue home meds - ambulate - SCDs when in bed - incentive spirometry - regular diet - possible discharge home later today BRYSON MCGHEE MD Jun 28, 2021 10:54
[2021-06-28 14:00] VITALS: BP 116/78
[2021-06-28] MEDS ORDERED: PERCOCET PO (15:07)
[2021-06-28] MEDS ORDERED: ZOFR4TAB16 PO (15:07)
[2021-06-28] MEDS: ONDANSETRON 4MG/2ML VIAL IV PRN (15:12)
--- NOTE | 2021-06-28 15:48 | DSES ---
DISCHARGE SUMMARY DATE OF ADMISSION: 06/26/2021 DATE OF DISCHARGE: 06/28/2021 ADMISSION DIAGNOSIS: Cystic left renal mass. 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 ADMITTING PHYSICIAN: Dr. Steve Ruby DISCHARGING PHYSICIAN: Dr. Steve Ruby. PROCEDURE PERFORMED: Left robotic-assisted laparoscopic partial nephrectomy on 06/26/2021. HISTORY OF PRESENT ILLNESS: This is a 71-year-old female who was found to have an 8 cm Bosniak IV cyst. This was on her left kidney. Given the concern for malignancy, it was recommended that she undergo the above procedure. She was admitted to the hospital postoperatively. HOSPITAL COURSE: The patient was admitted to the hospital after undergoing the above-listed procedure. Her postoperative course was for the most part unremarkable. throughout her hospital stay her labs were within acceptable limits. Specifically, her hemoglobin level remained stable at around 10.4. Her serum creatinine was stable at 0.6 by postoperative day #2. Her urine output throughout her hospital stay was within normal limits. On postoperative day #1 her Sierra catheter was removed, and she voided without difficulty. On postoperative day #1, she started ambulating but still had a moderate amount of pain. She also had significant abdominal distention on the morning of postoperative day #1. She was given a suppository, and subsequently she started passing gas and had a bowel movement. Her abdominal distention improved significantly. Later in the day she also had a large bout of diarrhea. This resolved by postoperative day #2. By postoperative day #2, her pain was much better controlled. She was ambulating well. By the afternoon of postoperative day #2 she was deemed ready for discharge home. Her Pratik-Hurtado drain had normal output, and therefore it was removed on postoperative day #2. She was discharged home on postoperative day #2 with a the plan for her to followup in neurology clinic in approximately 2 weeks for a postoperative visit. IVONNE
== END 2021-06-28 16:51 | disposition home or self-care (01) | DRG 658 ==
LOC: M OR 06:15 → UNDODISIN 13:45 → M MS5PR 13:50
PROVIDERS: ADMIT Urology; ATTEND Urology
PROC: 8E0W4CZ Robotic Assisted Procedure of Trunk Region, Percutaneous Endoscopic Approach (ICD-10-PCS; 2021-06-26)
PROC: 0TB Urinary System, Excision (ICD-10-PCS; principal; 2021-06-26 07:30)
DX: C64.2 Malignant neoplasm of left kidney, except renal pelvis (principal); K21.9 Gastro-esophageal reflux disease without esophagitis; I10 Essential (primary) hypertension

== ENCOUNTER → 2022-01-29 | Outpatient (CLI) | payer MEDICARE, BC, OTHER ==
[~2022-01-29] MED LIST changes: +LOSA50TA28 PO; -LOSA50TA88 PO; -LR 1,000 ML IV ONE; +PERCOCET PO; +ZOFR4TAB16 PO; -ceFAZolin SOD 2 GM in IV 1 EA IV ONE
[2022-01-29 17:51] LABS: BASO % 0.7 % (0.0-1.0); EOS # 0.1 10^3/uL (0.0-0.5); EOS % 1.3 % (0.0-3.0); HEMATOCRIT 39.2 % (36.0-47.0); HEMOGLOBIN 13.1 g/dl (12.0-15.5); LYMPH # 1.1 10^3/uL (1.5-5.0); LYMPH % 20.3 % (24.0-44.0); MEAN CORPUSCULAR HEMOGLOBIN 30.9 pg (27.0-33.0); MEAN CORPUSCULAR HGB CONC 33.4 g/dl (32.0-36.5); MEAN CORPUSCULAR VOLUME 92.5 fl (80.0-96.0); MONO # 0.8 10^3/uL (0.0-0.8); NEUTROPHILS # 3.4 10^3/uL (1.5-8.5); NEUTROPHILS % 62.2 % (36.0-66.0); PLATELET COUNT, AUTOMATED 324 10^3/uL (150-450); RED BLOOD COUNT 4.24 10^6/uL (4.00-5.40); WHITE BLOOD COUNT 5.5 10^3/uL (4.0-10.0)
[2022-01-29 17:54] LABS: CREATININE, URINE 44.5 MG/DL; MALB URINE SIEMENS < 5.0 MG/L; MAU/CREAT RATIO 11.2 MCG/MG (0.0-30.0)
[2022-01-29 17:58] LABS: ALBUMIN 3.9 GM/DL (3.2-5.2); ALT/SGPT 32 U/L (12-78); BILIRUBIN,TOTAL 0.5 MG/DL (0.2-1.0); BLOOD UREA NITROGEN 21 MG/DL (7-18); CALCIUM LEVEL 9.4 MG/DL (8.8-10.2); CARBON DIOXIDE LEVEL 30 MEQ/L (21-32); CHLORIDE LEVEL 99 MEQ/L (98-107); CHOLESTEROL LEVEL 315 MG/DL (<200); CHOLESTEROL RISK RATIO 2.863 (<5); CREATININE FOR GFR 0.92 MG/DL (0.55-1.30); GLOMERULAR FILTRATION RATE > 60.0 (>39); GLUCOSE, FASTING 89 MG/DL (70-100); HDL CHOLESTEROL 110 MG/DL (>40); LDL CHOLESTEROL 190 MG/DL (<100); NON-HDL-C 205 MG/DL; POTASSIUM SERUM 3.9 MEQ/L (3.5-5.1); SODIUM LEVEL 134 MEQ/L (136-145); TRIGLYCERIDES LEVEL 74 MG/DL (<150)
== END ==
LOC: M ADAMS 13:18
PROVIDERS: ATTEND Family Medicine
DX: E78.2 Mixed hyperlipidemia (principal); E03.9 Hypothyroidism, unspecified; I10 Essential (primary) hypertension

== ENCOUNTER → 2022-02-14 | Outpatient (CLI) | payer MEDICARE, BC, OTHER | LOC: M ADAMS 13:17 | PROVIDERS: ATTEND Urology | DX: C64.9 Malignant neoplasm of unspecified kidney, except renal pelvis (principal); K44.9 Diaphragmatic hernia without obstruction or gangrene ==

== ENCOUNTER → 2022-02-21 | Outpatient (CLI) | payer MEDICARE, BC, OTHER ==
[~2022-02-21] MED LIST changes: +ISOVUE-370 76% 100ML VIAL As Ordered ONE
== END ==
LOC: M RAD 08:56
PROVIDERS: ATTEND Urology
DX: C64.9 Malignant neoplasm of unspecified kidney, except renal pelvis (principal); K44.9 Diaphragmatic hernia without obstruction or gangrene; R91.8 Other nonspecific abnormal finding of lung field; M51.35 Other intervertebral disc degeneration, thoracolumbar region; M41.85 Other forms of scoliosis, thoracolumbar region; D18.03 Hemangioma of intra-abdominal structures
CPT/HCPCS: 74170; Q9967

== ENCOUNTER → 2023-08-24 | Outpatient (CLI) | payer MEDICARE, BC, OTHER ==
[~2023-08-24] MED LIST changes: -ISOVUE-370 76% 100ML VIAL As Ordered ONE; -NIAC500C11 PO; +NIAC500C5 PO
== END ==
LOC: M CARPUL 14:04
PROVIDERS: ATTEND Family Medicine
DX: I51.7 Cardiomegaly (principal)

== ENCOUNTER → 2024-03-29 | Outpatient (REF) | payer MEDICARE, BC ==
[~2024-03-29] MED LIST changes: +BUPR-597 PO; -BUPR300T92 PO; +TRAM1TAB42 PO; -TRAM37.53 PO
[2024-03-29 14:01] LABS: BLOOD UREA NITROGEN 11 MG/DL (9-23); CALCIUM LEVEL 9.9 MG/DL (8.3-10.6); CARBON DIOXIDE LEVEL 30 MMOL/L (20-31); CHLORIDE LEVEL 100 MMOL/L (98-107); GLOMERULAR FILTRATION RATE > 60.0 (>39); GLUCOSE, FASTING 96 MG/DL (74-106); POTASSIUM SERUM 3.9 MMOL/L (3.5-5.1); SODIUM LEVEL 134 MMOL/L (136-145)
== END ==
LOC: M SFHCADAM 08:52
PROVIDERS: ATTEND Urology
DX: C64.9 Malignant neoplasm of unspecified kidney, except renal pelvis (principal)

== ENCOUNTER → 2024-03-31 | Outpatient (CLI) | payer MEDICARE, BC ==
[~2024-03-31] MED LIST changes: +ISOVUE-370 76% 100ML VIAL As Ordered ONE
== END ==
LOC: M RAD 09:32
PROVIDERS: ATTEND Urology
DX: C64.9 Malignant neoplasm of unspecified kidney, except renal pelvis (principal)
CPT/HCPCS: 74170; Q9967

== ENCOUNTER 2024-05-18 06:51 | Day surgery (SDC) | payer MEDICARE, BC ==
[~2024-05-18] VITALS: Ht 157.5 cm; Wt 59.0 kg
[~2024-05-18 06:51] MED LIST changes: +ACET650T61 PO; +ASCO500C3 PO; +FLUT1BLS5; -ISOVUE-370 76% 100ML VIAL As Ordered ONE; +OMEP-173 PO; +ROSU5TAB40 PO
[2024-05-18] MEDS ORDERED: propofoL 500 MG/50 ML VIAL As Ordered ONE (07:17)
[2024-05-18] MEDS ORDERED: fentaNYL 100 MCG/2 ML INJECTION As Ordered ONE (07:17)
[2024-05-18] MEDS ORDERED: LIDOCAINE 2% 100MG/5ML SDV (FOR ANES.) As Ordered ONE (07:17)
[2024-05-18] MEDS ORDERED: ONDANSETRON 4MG 2ML VIAL As Ordered ONE (07:19)
[2024-05-18 08:25] VITALS: BP 96/63; TEMP 96.5; O2SAT 99
== END 2024-05-18 08:43 | disposition home or self-care (01) ==
LOC: M OPP 06:51
PROVIDERS: ATTEND Internal Medicine Gastroenterology
DX: Z12.11 Encounter for screening for malignant neoplasm of colon (principal); Z12.12 Encounter for screening for malignant neoplasm of rectum; D12.3 Benign neoplasm of transverse colon; K21.00 Gastro-esophageal reflux disease with esophagitis, without bleeding; K64.0 First degree hemorrhoids; K57.30 Diverticulosis of large intestine without perforation or abscess without bleeding; K44.9 Diaphragmatic hernia without obstruction or gangrene; R12 Heartburn; I10 Essential (primary) hypertension; J43.9 Emphysema, unspecified; E78.00 Pure hypercholesterolemia, unspecified; Z90.711 Acquired absence of uterus with remaining cervical stump; Z79.899 Other long term (current) drug therapy; Z88.8 Allergy status to other drugs, medicaments and biological substances; Z90.2 Acquired absence of lung [part of]; Z87.891 Personal history of nicotine dependence; Z90.89 Acquired absence of other organs
CPT/HCPCS: 43239; 45380; 88305; J2405; J3010